=== PATIENT | female | born 1950 | race Caucasian/White ===

== ENCOUNTER → 2016-07-28 | Outpatient (CLI) | payer MEDICARE, OTHER ==
--- NOTE | 2016-07-29 11:17 | EEG ---
DATE OF SERVICE: 07/28/2016 INDICATIONS FOR EXAMINATION: Stroke. AGE: 66Y DESCRIPTION OF PROCEDURE: This EEG was performed using a 21 channel digital electroencephalograph following international 10-20 system. DESCRIPTION OF THE RECORDING: From the beginning of the tracing, with the patient's eyes closed, the background rhythm was mostly consisting of 8-9 Hz alpha frequency in the posterior occipital leads. Mild asymmetry is noticed with reduced amplitude in the left temporal/frontal region compared to the right side. Occasional movement artifacts are seen. Muscle artifacts are noticed. Photic stimulation was performed with minimal driving response seen. No pathological waves were elicited. Hyperventilation was not performed. The patient remains awake throughout the tracing. Significant movement artifacts are seen near the end of the tracing. No epileptiform discharges are seen. Her EKG lead showed regular rate and rhythm. INTERPRETATION: This awake EEG can be considered within normal limits except for mild asymmetry noticed as mentioned above. No epileptiform discharges were seen. The absence of epileptiform discharges does not rule out the diagnosis of epilepsy. Therefore, clinical correlation is recommended.
== END | disposition home or self-care (01) ==
LOC: NEUROMAIN 09:27
PROVIDERS: ATTEND Psychiatry & Neurology Neurology
DX: I61.9 Nontraumatic intracerebral hemorrhage, unspecified (principal)
CPT/HCPCS: 95819

== ENCOUNTER → 2016-11-11 | Outpatient (CLI) | payer MEDICARE, OTHER ==
--- NOTE | 2016-11-11 11:50 | US ---
EXAMINATION TYPE: US abdomen complete DATE OF EXAM: 11/11/2016 COMPARISON: NONE CLINICAL HISTORY: K75.9 Hepatitis,R94.5 Abn Liver Function Test. Abnormal liver function test, hepati tis EXAM MEASUREMENTS: Liver Length: 14.4 cm Gallbladder Wall: 0.2 cm CBD: 0.7 cm Spleen: 11.2 cm Right Kidney: 9.3 x 4.0 x 4.4 cm Left Kidney: 10.4 x 5.0 x 4.4 cm Pancreas: visualized portions wnl, tail obscured by overlying midline bowel gas, duct seen measuring 0.3cm Liver: slightly course echotexture, 2.7cm hypoechoic area adjacent to gallbladder, possible area of focal sparing vs. other Gallbladder: multiple echogenic shadowing foci seen with largest in fundal portion measuring 2.3cm, probable stones, wall appears wnl Evidence for sonographic Lerner's sign: no CBD: slightly dilated at 0.7cm Spleen: visualized portions wnl, limited by rib shadowing Right Kidney: no hydro or masses seen Left Kidney: no hydro or masses seen, limited by rib shadowing and overlying bowel gas Upper IVC: wnl Abd Aorta: visualized portions wnl, mid and distal portion obscured by overlying midline bowel gas The visualized liver is heterogeneous. Evaluation for focal masses is suboptimal due to the heterogen eity. No worrisome intrahepatic ductal dilatation is seen. The intrahepatic portion of the IVC and vi sualized proximal to mid abdominal aorta are within normal limits. There is evidence of mobile shado wing cholelithiasis. No pericholecystic fluid collection or abnormal gallbladder wall thickening is s een. Sonographic Lerner's sign is negative per technologist. Common bile duct is unremarkable. The visualized portions of the pancreas are homogenous. Duct is visualized but within normal limits The spleen is unremarkable. Kidneys are symmetric and free of hydronephrosis. No renal lesions are seen . IMPRESSION: 1. Gallstones without secondary ultrasound evidence for acute cholecystitis. 2. Heterogeneous hyperechoic appearance of liver is consistent with diffuse fatty infiltration or und erlying hepatocellular disease, former is favored given there is some sparing near gallbladder fossa.
== END | disposition home or self-care (01) ==
LOC: RADUSWWP 10:49
PROVIDERS: ATTEND Family Medicine
DX: K80.20 Calculus of gallbladder without cholecystitis without obstruction (principal); K75.89 Other specified inflammatory liver diseases
CPT/HCPCS: 76700

== ENCOUNTER 2016-12-15 10:36 | Emergency (ER) | payer MEDICARE, OTHER ==
[2016-12-15 10:43] VITALS: TEMP 97.9
[2016-12-15] MEDS ORDERED: HYDROmorphone 0.5 MG/0.5 ML SYRINGE IVP STA (10:51)
[2016-12-15] MEDS ORDERED: ONDANSETRON 4 MG/2 ML VIAL IVP STA (10:51)
--- NOTE | 2016-12-15 10:54 | ED ---
General Adult HPI - General Chief complaint: Abdominal Pain Stated complaint: SOB, Shaking Time Seen by Provider: 12/15/16 10:40 Source: patient, RN notes reviewed Mode of arrival: wheelchair Limitations: no limitations - History of Present Illness Initial comments: This is a 66-year-old female who presents emergency Department complaining of right upper quadrant abdominal pain radiates to her back. Patient states she recently had elevated liver enzymes. Patient states she also had an ultrasound and it showed gallstones. Patient states she's not a drinker. Patient denies any nausea vomiting. Patient states his pain started this morning and persisted today and she called her primary medical care doctor and she was instructed to come to the emergency department. Patient denies any recent fever or chills. Patient states she's had a chronic cough for about 2-3 weeks. Patient denies any sputum production. Patient denies shortness of breath except when she is coughing. Patient denies any chest pain or palpitations. - Related Data Home Medications Medication Instructions Recorded Confirmed Chlorpheniramine/Dextromethorp 1 tab PO Q6H PRN 12/15/16 12/15/16 [Coricidin Hbp Cough & Cold Tab] Hydrochlorothiazide [Hydrodiuril] 12.5 mg PO DAILY 12/15/16 12/15/16 Lisinopril [Zestril] 20 mg PO DAILY 12/15/16 12/15/16 amLODIPine [Norvasc] 10 mg PO DAILY 12/15/16 12/15/16 Allergies Allergy/AdvReac Type Severity Reaction Status Date / Time No Known Allergies Allergy Verified 12/15/16 10:54 Review of Systems ROS Statement: Those systems with pertinent positive or pertinent negative responses have been documented in the HPI. ROS Other: All systems not noted in ROS Statement are negative. 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 Patient is nontoxic and well- hydrated and is in mild distress. ENT: Neck is soft and supple. No significant lymphadenopathy is noted. Oropharynx is clear. Moist mucous membranes. Neck has full range of motion without eliciting any pain. EYES: The sclera were anicteric and conjunctiva were pink and moist. Extraocular movements were intact and pupils were equal round and reactive to light. Eyelids were unremarkable. PULMONARY: Unlabored respirations. Good breath sounds bilaterally. No audible rales rhonchi or wheezing was noted. CARDIOVASCULAR: There is a regular rate and rhythm without any murmurs gallops or rubs. ABDOMEN: Mild epigastric abdominal pain. No palpable organomegaly was noted. There is no palpable pulsatile mass. SKIN: Skin is clear with no lesions or rashes and otherwise unremarkable. NEUROLOGIC: Patient is alert and oriented x3. Cranial nerves II through XII are grossly intact. Motor and sensory are also intact. Normal speech, volume and content. Symmetrical smile. MUSCULOSKELETAL: Normal extremities with adequate strength and full range of motion. No lower extremity swelling or edema. No calf tenderness. LYMPHATICS: No significant lymphadenopathy is noted PSYCHIATRIC: Normal psychiatric evaluation. Limitations: no limitations Course Vital Signs 12/15/16 12/15/16 10:40 11:53 Temperature 97.9 F 97.9 F Pulse Rate 110 H 88 Respiratory 18 17 Rate Blood Pressure 133/66 114/66 O2 Sat by Pulse 100 99 Oximetry Medical Decision Making - Medical Decision Making X-ray of the chest shows no acute normalities. KUB shows no acute abnormality. I went back to the patient's room and she was feeling much better she stated she was able to see him drink lately without problem. Patient states currently she is not nauseous and the pain is much improved. Patient states she will follow-up with her primary medical care doctor and talked about getting a HIDA scan - Lab Data Result diagrams: 12/15/16 10:55 12/15/16 10:55 Lab Results 12/15/16 12/15/16 12/15/16 Range/Units 10:55 10:55 10:55 WBC 8.4 (3.8-10.6) k/uL RBC 4.03 (3.80-5.40) m/uL Hgb 12.6 (11.4-16.0) gm/dL Hct 38.1 (34.0-46.0) % MCV 94.5 (80.0-100.0) fL MCH 31.2 (25.0-35.0) pg MCHC 33.0 (31.0-37.0) g/dL RDW 12.3 (11.5-15.5) % Plt Count 398 (150-450) k/uL Neutrophils % 70 % Lymphocytes % 21 % Monocytes % 7 % Eosinophils % 2 % Basophils % 0 % Neutrophils # 5.8 (1.3-7.7) k/uL Lymphocytes # 1.7 (1.0-4.8) k/uL Monocytes # 0.6 (0-1.0) k/uL Eosinophils # 0.1 (0-0.7) k/uL Basophils # 0.0 (0-0.2) k/uL Sodium 136 L (137-145) mmol/L Potassium 4.0 (3.5-5.1) mmol/L Chloride 102 (98-107) mmol/L Carbon Dioxide 18 L (22-30) mmol/L Anion Gap 16 mmol/L BUN 26 H (7-17) mg/dL Creatinine 1.14 H (0.52-1.04) mg/dL Est GFR (MDRD) Af Amer 57 (>60 ml/min/1.73 sqM) Est GFR (MDRD) Non-Af 47 (>60 ml/min/1.73 sqM) Glucose 193 H (74-99) mg/dL Calcium 9.3 (8.4-10.2) mg/dL Total Bilirubin 0.7 (0.2-1.3) mg/dL AST 20 (14-36) U/L ALT 27 (9-52) U/L Alkaline Phosphatase 108 (38-126) U/L Total Protein 8.1 (6.3-8.2) g/dL Albumin 4.3 (3.5-5.0) g/dL Amylase 58 (30-110) U/L Lipase 241 (23-300) U/L Urine Color Light Yellow Urine Appearance Clear (Clear) Urine pH 7.5 (5.0-8.0) Ur Specific [place] 1.006 (1.001-1.035) Urine Protein Negative (Negative) Urine Glucose (UA) Negative (Negative) Urine Ketones Negative (Negative) Urine Blood Negative (Negative) Urine Nitrite Negative (Negative) Urine Bilirubin Negative (Negative) Urine Urobilinogen <2.0 (<2.0) mg/dL Ur Leukocyte Esterase Small H (Negative) Urine WBC 5 (0-5) /hpf Disposition Clinical Impression: Right upper quadrant pain Disposition: HOME SELF-CARE Condition: Good Instructions: Abdominal Pain (ED) Additional Instructions: Follow-up with her primary medical care doctor discussed the possibility of getting a HIDA scan Referrals: Ainsley Pabon MD [Primary Care Provider] - 1-2 days Time of Disposition: 12:13
[2016-12-15 11:10] LABS: Basophils % (A) 0 %; CH 33.2; CHCM 35.3; Eosinophils # (A) 0.1 k/uL (0-0.7); Eosinophils % (A) 2 %; HCT 38.1 % (34.0-46.0); HDW 2.43; HGB 12.6 gm/dL (11.4-16.0); Luc # (Auto) 0.11; Luc % (Auto) 1; Lymphocytes # (A) 1.7 k/uL (1.0-4.8); Lymphocytes % (A) 21 %; MCH 31.2 pg (25.0-35.0); MCV 94.5 fL (80.0-100.0); Mean Platelet Volume 8.3; Monocytes # (A) 0.6 k/uL (0-1.0); Monocytes % (A) 7 %; Neutrophils # (A) 5.8 k/uL (1.3-7.7); Neutrophils % (A) 70 %; RBC 4.03 m/uL (3.80-5.40); RDW 12.3 % (11.5-15.5); WBC 8.4 k/uL (3.8-10.6)
[2016-12-15 11:14] LABS: Calcium 9.3 mg/dL (8.4-10.2); Total Bilirubin 0.7 mg/dL (0.2-1.3); Total Protein 8.1 g/dL (6.3-8.2)
[2016-12-15 11:21] LABS: Appearance,Urine Clear (Clear); Bilirubin,Urine Negative (Negative); Glucose,Urine (UA) Negative (Negative); Ketones,Urine Negative (Negative); Leukocyte Esterase,Urine Small (Negative); Nitrite,Urine Negative (Negative); PH, Urine 7.5 (5.0-8.0); Particle Count 580; Protein,Urine Negative (Negative); Specific Gravity,Urine 1.006 (1.001-1.035); UA Billing (MACRO vs. MICRO) MICRO; Urobilinogen,Urine <2.0 mg/dL (<2.0); WBC,Urine 5 /hpf (0-5)
--- NOTE | 2016-12-15 11:45 | XR ---
EXAMINATION TYPE: XR KUB DATE OF EXAM: 12/15/2016 11:37 AM CLINICAL HISTORY: Right upper quadrant and flank pain. TECHNIQUE: Two Upright KUB images of the abdomen are obtained. COMPARISON: None. FINDINGS: Scattered gas is seen in non-distended small bowel loops. Gas and fecal material is seen in non-distended colon. There is left pelvic phlebolith. There is no visceromegaly, pneumoperitoneum, o r abnormal calcification appreciated. The lung bases are clear and the osseous structures are intact. IMPRESSION: Overall nonobstructive bowel gas pattern. No definite nephrolithiasis.
--- NOTE | 2016-12-15 11:45 | XR ---
EXAMINATION TYPE: XR chest 2V DATE OF EXAM: 12/15/2016 COMPARISON: Chest x-ray February 05, 2016. HISTORY: Right upper quadrant and flank pain. TECHNIQUE: Frontal and lateral views of the chest are obtained. FINDINGS: There is no focal air space opacity, pleural effusion, or pneumothorax seen. The cardiac silhouette size is within normal limits. The osseous structures are intact. IMPRESSION: No acute cardiopulmonary process. No significant change from prior.
[2016-12-15 11:54] VITALS: BP 114/66; PULSE 88; RESP 17
== END 2016-12-15 12:30 | disposition home or self-care (01) ==
LOC: EC 10:36
DX: R10.11 Right upper quadrant pain (principal); R05 Cough; Z86.73 Personal history of transient ischemic attack (TIA), and cerebral infarction without residual deficits; Z79.899 Other long term (current) drug therapy; Z53.20 Procedure and treatment not carried out because of patient's decision for unspecified reasons
CPT/HCPCS: 36415; 71020; 74000; 80053; 81001; 82150; 83690; 85025; 99284

== ENCOUNTER 2017-04-07 06:36 | Day surgery (SDC) | payer MEDICARE, OTHER ==
[2017-04-02 12:00] VITALS: BMI 28.1
[~2017-04-07 06:36] MED LIST: DEXAMETHASONE SOD PHOSPHATE 10 MG/ML 1 ML VIAL IV ONE; HEPARIN SODIUM,PORCINE 5,000 UNIT/ML 1 ML VIAL SQ ONE; HYDROmorphone 0.5 MG/0.5 ML SYRINGE IVP PRN; LACTATED RINGERS 1,000 ML IV SCH; ONDANSETRON 4 MG/2 ML VIAL IVP ONE; ceFAZolin IN SWFI 2 GM/20 ML SYRINGE IVP ONE
[2017-04-07] MEDS ORDERED: LIDOCAINE 1% 20 ML VIAL (10MG/ML) FOR IV START INTRADERMA ONE (06:49)
[2017-04-07] MEDS ORDERED: LACTATED RINGERS 1,000 ML IV ONE (07:00)
[2017-04-07 07:07] LABS: Glucose,Whole Blood 142 mg/dL (75-99)
--- NOTE | 2017-04-07 07:45 | P.GSHP ---
History of Present Illness H&P Date: 04/07/17 Chief Complaint: Chronic cholecystitis Patient seen in the office in January. She was in the ER with the complaints of right upper quadrant pain. She is found have large gallstones measuring 2.3 cm. Recently her right-sided pain has persisted. Aggravated by certain foods. No change in bowel habits. No change in the color of her skin urine or stool. Recent liver enzymes normal. 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"/ TIA 2015; gallstones History of Any Multi-Drug Resistant Organisms: None Reported Past Surgical History: Adenoidectomy, Tonsillectomy Additional Past Surgical History / Comment(s): as child Past Anesthesia/Blood Transfusion Reactions: No Reported Reaction Smoking Status: Never smoker - Past Family History Sister(s) Family Medical History: Cancer Medications and Allergies Home Medications Medication Instructions Recorded Confirmed Type Hydrochlorothiazide [Hydrodiuril] 12.5 mg PO DAILY 12/15/16 04/02/17 History Lisinopril [Zestril] 20 mg PO DAILY 12/15/16 04/02/17 History amLODIPine [Norvasc] 10 mg PO DAILY 12/15/16 04/02/17 History Allergies Allergy/AdvReac Type Severity Reaction Status Date / Time No Known Allergies Allergy Verified 04/02/17 11:55 Surgical - Exam Vital Signs Temp Pulse Resp BP Pulse Ox 98.3 F 101 H 18 139/84 99 04/07/17 06:47 04/07/17 06:47 04/07/17 06:47 04/07/17 06:47 04/07/17 06:47 Physical exam: General: Well-developed, well-nourished HEENT: Normocephalic, sclerae nonicteric Abdomen: Nontender, nondistended Extremities: No edema Neuro: Alert and oriented Results - Labs Abnormal Lab Results - Last 24 Hours (Table) 04/07/17 Range/Units 07:02 POC Glucose (mg/dL) 142 H (75-99) mg/dL Assessment and Plan (1) Chronic cholecystitis Narrative/Plan: Will proceed with laparoscopic cholecystectomy today. Risks of bleeding, infection, bile leak, bile duct injury, conversion to an open procedure, trocar injury, anesthesia related complications were discussed. She understands and wishes to proceed. Current Visit: Yes Status: Acute Code(s): K81.1 - CHRONIC CHOLECYSTITIS SNOMED Code(s): 99965988
[2017-04-07] MEDS ORDERED: SUCCINYLCHOLINE CHLORIDE 100 MG/5 ML SYR IV ONE (08:05)
[2017-04-07] MEDS ORDERED: GLYCOPYRROLATE 0.2 MG/ML 2 ML VIAL ONE (08:05)
[2017-04-07] MEDS ORDERED: PHENYLEPHRINE-0.9% NACL SYG 1 MG/10 ML SYRINGE ONE (08:05)
[2017-04-07] MEDS ORDERED: NEOSTIGMINE 1 MG/ML 10 ML VIAL ONE (08:05)
[2017-04-07] MEDS ORDERED: LIDOCAINE 1% INJ 10MG/ML (20 ML MDV) ONE (08:05)
[2017-04-07] MEDS ORDERED: HYDROmorphone (PF) 1 MG/ML ONE (08:05)
[2017-04-07] MEDS ORDERED: ROCURONIUM BROMIDE 10 MG/ML 10 ML VIAL IV ONE (08:05)
[2017-04-07] MEDS ORDERED: PROPOFOL 10 MG/ML 20 ML VIAL IV ONE (08:05)
[2017-04-07] MEDS ORDERED: fentaNYL (PF) 50 MCG/ML 2 ML AMP ONE (08:05)
[2017-04-07] MEDS ORDERED: MIDAZOLAM 2 MG/2 ML VIAL ONE (08:05)
[2017-04-07] MEDS ORDERED: BUPIVACAINE (PF) 0.5% 30 ML VIAL SQ ONE ×2 (08:25)
[2017-04-07] MEDS ORDERED: NALOXONE 0.4 MG/ML 1 ML VIAL IV PRN (09:04)
[2017-04-07] MEDS ORDERED: traMADol 50 MG TAB PO PRN (09:04)
--- NOTE | 2017-04-07 09:11 | P.PCN ---
Date of Procedure: 04/07/17 Procedure(s) Performed: Preoperative Dx: GERD Postoperative Dx: Mild gastritis, small hiatal hernia Procedure: EGD with Bx Anesthesia: Sedation Endoscopist: Dr. Brown Specimens: Antrum Endoscopic Procedure: The patient was on the endoscopy table in the left decubitus position. The Olympus gastroscope was inserted into the oropharynx and passed under direct visualization to the region of the third portion of the duodenum. From that point the scope was slowly withdrawn inspecting all surfaces carefully. There were no neoplastic inflammatory or polypoid lesions throughout the duodenum. The pylorus was widely patent. The stomach was carefully inspected. There was mild gastritis present. A biopsy of the antrum took place to rule out H. pylori. Retroflexion revealed a small to medium sized hiatal hernia. The esophagus was then carefully examined. There were no neoplastic inflammatory or polypoid lesions throughout the visualized esophagus. The patient was then taken to the recovery room in stable condition per anesthesia guidelines. Recommendations: Await biopsies results. Will see the patient back in the office to discuss antireflux surgery.
--- NOTE | 2017-04-07 09:15 | P.OP ---
Date of Procedure: 04/07/17 Procedure(s) Performed: PREOPERATIVE DIAGNOSIS: Chronic cholecystitis POSTOPERATIVE DIAGNOSIS: Same PROCEDURE: Laparoscopic cholecystectomy SURGEON: Stephanie EBL: Minimal see anesthesia record ANESTHESIA: Gen. COMPLICATIONS: None OPERATIVE PROCEDURE: The patient was brought and placed on the operating room table in the supine position. The patient was placed under general anesthesia at that time. The abdomen was prepped and draped in the usual sterile fashion. A small vertical infraumbilical incision was made. The fascia was grasped with the Sharif forceps. The fascia was retracted anteriorly. The Veress needle was advanced into the peritoneal cavity. The saline drop test was normal. Insufflation took place up to 15 mmHg. A 5 mm optical trocar was advanced and the peritoneal cavity. 2 additional 5 mm trochars were placed in the right upper quadrant under direct visualization. A 10 mm trocar was advanced into the epigastric incision site. The gallbladder was retracted superiorly and laterally. The peritoneum overlying the infundibulum was bluntly dissected. The patient's cystic duct was visualized. The junction between the cystic duct common and hepatic duct was identified. The cystic duct was then divided after placement of 3 10 mm clips on the patient's side and one on the specimen side. The cystic artery was identified and clipped as well. A small vessel was seen along the gallbladder fossa and clipped as well. The gallbladder was then removed from the liver bed using electrocautery. The gallbladder was then removed from the epigastric trocar site with an Endo Catch bag after lengthening the epigastric incision. The gallbladder fossa was irrigated with saline. There was no evidence of any bleeding or biliary drainage seen. The trochars were then removed. The fascia at the 10 millimeter site was closed using a running 0 Vicryl stitch. The skin at all 4 sites was closed using a 4-0 Monocryl stitch. At the end of this procedure the sponge and needle counts were correct. DISPOSITION: Stable to the recovery room. Incidentally the patient was noted to have a friable lesion involving her right upper gumline during intubation. This has the appearance suspicious for malignancy. Family was informed of this. We will try to have the patient seen by oral surgery to address this further in the outpatient setting.
[2017-04-07 09:23] VITALS: TEMP 98.8
[2017-04-07 10:56] VITALS: BP 116/58; PULSE 81; RESP 18
== END 2017-04-07 12:30 | disposition home or self-care (01) ==
LOC: OR 06:36
PROVIDERS: ATTEND Surgery
DX: K80.10 Calculus of gallbladder with chronic cholecystitis without obstruction (principal); M19.90 Unspecified osteoarthritis, unspecified site; I10 Essential (primary) hypertension; E11.9 Type 2 diabetes mellitus without complications; N28.9 Disorder of kidney and ureter, unspecified; I69.351 Hemiplegia and hemiparesis following cerebral infarction affecting right dominant side; Z79.899 Other long term (current) drug therapy
CPT/HCPCS: 88304; 47562; J2250; J1644; J1100; J2710; J2405; J2001; J3010; J1170; J2370; J0330; J2704; J0690

== ENCOUNTER → 2017-05-25 | Outpatient (CLI) | payer MEDICARE, OTHER ==
[2017-05-25 09:58] LABS: Basophils % (A) 1 %; Eosinophils # (A) 0.1 k/uL (0-0.7); Eosinophils % (A) 3 %; HCT 42.1 % (34.0-46.0); HGB 13.8 gm/dL (11.4-16.0); Lymphocytes # (A) 1.6 k/uL (1.0-4.8); Lymphocytes % (A) 32 %; MCH 29.5 pg (25.0-35.0); MCHC 32.8 g/dL (31.0-37.0); Mean Platelet Volume 7.1; Monocytes # (A) 0.3 k/uL (0-1.0); Monocytes % (A) 6 %; Neutrophils # (A) 2.8 k/uL (1.3-7.7); Neutrophils % (A) 56 %; Platelet Count 247 k/uL (150-450); RBC 4.68 m/uL (3.80-5.40); RDW 12.6 % (11.5-15.5)
[2017-05-25 10:04] LABS: Albumin 4.5 g/dL (3.5-5.0); Calcium 9.8 mg/dL (8.4-10.2); Phosphorus 3.7 mg/dL (2.5-4.5); Potassium 5.3 mmol/L (3.5-5.1); Total Bilirubin 0.5 mg/dL (0.2-1.3); Total Protein 7.7 g/dL (6.3-8.2); Uric Acid 5.2 mg/dL (3.7-7.4)
[2017-05-25 16:18] LABS: Vitamin D 25 Hydroxy 27.3 ng/mL (30.0-100.0)
[2017-05-25 16:34] LABS: Parathyroid Hormone Intact 51.4 pg/mL (14.0-72.0)
== END | disposition home or self-care (01) ==
LOC: LABWHC1 09:18
PROVIDERS: ATTEND Family Medicine
DX: N18.3 Chronic kidney disease, stage 3 (moderate) (principal); E78.5 Hyperlipidemia, unspecified; R74.8 Abnormal levels of other serum enzymes
CPT/HCPCS: 36415; 80053; 80061; 82043; 82306; 82570; 82977; 83735; 83970; 84100; 84550; 85025

== ENCOUNTER → 2017-09-01 | Outpatient (CLI) | payer MEDICARE, OTHER ==
[2017-09-01 10:17] LABS: Albumin 4.6 g/dL (3.5-5.0); Calcium 9.6 mg/dL (8.4-10.2); Potassium 4.5 mmol/L (3.5-5.1); Total Bilirubin 0.5 mg/dL (0.2-1.3); Total Protein 7.6 g/dL (6.3-8.2)
[2017-09-01 17:12] LABS: Hemoglobin A1C 6.2 % (4.0-6.0)
== END | disposition home or self-care (01) ==
LOC: LABWHC1 09:25
PROVIDERS: ATTEND Family Medicine
DX: E11.22 Type 2 diabetes mellitus with diabetic chronic kidney disease (principal); N18.3 Chronic kidney disease, stage 3 (moderate); E55.9 Vitamin D deficiency, unspecified; E78.5 Hyperlipidemia, unspecified; R74.8 Abnormal levels of other serum enzymes
CPT/HCPCS: 36415; 80053; 80061; 82306; 82977; 83036

== ENCOUNTER → 2017-11-26 | Outpatient (CLI) | payer MEDICARE, OTHER ==
[2017-11-26 12:06] LABS: Basophils % (A) 1 %; Eosinophils # (A) 0.2 k/uL (0-0.7); Eosinophils % (A) 3 %; HCT 38.9 % (34.0-46.0); HGB 13.1 gm/dL (11.4-16.0); Lymphocytes # (A) 1.4 k/uL (1.0-4.8); Lymphocytes % (A) 25 %; MCH 30.8 pg (25.0-35.0); MCHC 33.8 g/dL (31.0-37.0); Mean Platelet Volume 7.1; Monocytes # (A) 0.4 k/uL (0-1.0); Monocytes % (A) 7 %; Neutrophils # (A) 3.4 k/uL (1.3-7.7); Neutrophils % (A) 63 %; Platelet Count 210 k/uL (150-450); RBC 4.27 m/uL (3.80-5.40); RDW 12.8 % (11.5-15.5); WBC 5.4 k/uL (3.8-10.6)
[2017-11-26 12:27] LABS: Calcium 9.8 mg/dL (8.4-10.2)
--- NOTE | 2017-11-26 14:35 | MM ---
Reason for exam: screening (asymptomatic). Baseline mammogram. History: Patient is postmenopausal. Physical Findings: Nurse did not find any significant physical abnormalities on exam. MG Screening Mammo w CAD Bilateral CC and MLO view(s) were taken. There are scattered fibroglandular densities. Finding #1: There is a 5 mm equal density (isodense) mass in the subareolar position of the left breast. Finding #2: There are typically benign calcifications in both breasts. These results were verbally communicated with the patient and result sheet given to the patient on 11/26/17. ASSESSMENT: Incomplete: need additional imaging evaluation, BI-RAD 0 RECOMMENDATION: Special view mammogram of the left breast. If lesion persists on supplemental views, image directed ultrasound is recommended. [facility] will attempt to contact patient to return for supplemental views and ultrasound if indicated.
--- NOTE | 2017-11-26 14:36 | MM ---
Reason for exam: additional evaluation requested from abnormal screening. History: Patient is postmenopausal. Physical Findings: Breast exam preformed at baseline screening. MG Work Up Mamm w CAD LT Spot compression CC, spot compression MLO, and ML view(s) were taken of the left breast. There are scattered fibroglandular densities. These results were verbally communicated with the patient and result sheet given to the patient on 11/26/17. ASSESSMENT: Benign, BI-RAD 2 RECOMMENDATION: Return to routine screening mammogram schedule for both breasts.
== END | disposition home or self-care (01) ==
LOC: RADMAMWWP 10:08
PROVIDERS: ATTEND Family Medicine
DX: Z12.31 Encounter for screening mammogram for malignant neoplasm of breast (principal); R92.8 Other abnormal and inconclusive findings on diagnostic imaging of breast; N18.3 Chronic kidney disease, stage 3 (moderate)
CPT/HCPCS: 77065; 77067; 80048; 83970; 84100; 85025

== ENCOUNTER → 2018-03-08 | Outpatient (CLI) | payer MEDICARE, OTHER ==
[2018-03-08 11:51] LABS: Basophils % (A) 1 %; Eosinophils # (A) 0.2 k/uL (0-0.7); Eosinophils % (A) 2 %; HCT 38.6 % (34.0-46.0); HGB 12.8 gm/dL (11.4-16.0); Lymphocytes # (A) 1.6 k/uL (1.0-4.8); Lymphocytes % (A) 22 %; MCH 30.5 pg (25.0-35.0); MCHC 33.2 g/dL (31.0-37.0); Mean Platelet Volume 7.2; Monocytes # (A) 0.4 k/uL (0-1.0); Monocytes % (A) 6 %; Neutrophils # (A) 4.9 k/uL (1.3-7.7); Neutrophils % (A) 68 %; Platelet Count 249 k/uL (150-450); RBC 4.19 m/uL (3.80-5.40); RDW 12.7 % (11.5-15.5); WBC 7.3 k/uL (3.8-10.6)
[2018-03-08 17:33] LABS: Hemoglobin A1C 6.9 % (4.0-6.0)
[2018-03-08 19:11] LABS: Albumin 4.6 g/dL (3.80-4.90); Albumin/Globulin Ratio 1.92 (1.20-2.10); Anion Gap 7.5 mmol/L (4.00-12.00); Calcium 9.4 mg/dL (8.7-10.3); Carbon Dioxide 27.5 mmol/L (21.6-31.8); Globulin 2.4 g/dL (1.6-3.3); LDL Cholesterol,Calculated 53.4 mg/dL (0.0-131.0); Phosphorus 3.3 mg/dL (2.4-5.1); Potassium 5.3 mmol/L (3.5-5.5); Total Bilirubin 0.6 mg/dL (0.3-1.2); VLDL Calculation 12.6 mg/dL (5.00-40.00)
== END | disposition home or self-care (01) ==
LOC: LABWHC1 10:40
PROVIDERS: ATTEND Family Medicine
DX: E78.5 Hyperlipidemia, unspecified (principal); N18.2 Chronic kidney disease, stage 2 (mild); E55.9 Vitamin D deficiency, unspecified; E11.22 Type 2 diabetes mellitus with diabetic chronic kidney disease
CPT/HCPCS: 36415; 80053; 80061; 82043; 82306; 82570; 83036; 83735; 84100; 85025

== ENCOUNTER → 2018-06-07 | Outpatient (CLI) | payer MEDICARE, OTHER ==
[2018-06-07 16:11] LABS: Anion Gap 8.4 mmol/L (4.00-12.00); Calcium 9.6 mg/dL (8.7-10.3); Carbon Dioxide 24.6 mmol/L (21.6-31.8); Magnesium 2.2 mg/dL (1.5-2.4); Phosphorus 3.9 mg/dL (2.4-5.1); Potassium 4.8 mmol/L (3.5-5.5)
[2018-06-07 17:29] LABS: Hemoglobin A1C 6.5 % (4.0-6.0)
== END | disposition home or self-care (01) ==
LOC: LABWHC1 10:57
PROVIDERS: ATTEND Family Medicine
DX: E11.22 Type 2 diabetes mellitus with diabetic chronic kidney disease (principal); N18.3 Chronic kidney disease, stage 3 (moderate)
CPT/HCPCS: 36415; 80048; 83036; 83735; 83970; 84100

== ENCOUNTER → 2018-09-09 | Outpatient (CLI) | payer MEDICARE, OTHER ==
[2018-09-09 18:19] LABS: Albumin 4.6 g/dL (3.80-4.90); Albumin/Globulin Ratio 1.77 (1.60-3.17); Anion Gap 8.1 mmol/L (4.00-12.00); BUN/Creat Ratio 25.83 Ratio (12.00-20.00); Calcium 9.3 mg/dL (8.7-10.3); Carbon Dioxide 24.9 mmol/L (21.6-31.8); Globulin 2.6 g/dL (1.6-3.3); LDL Cholesterol,Calculated 69.8 mg/dL (0.0-131.0); Potassium 4.6 mmol/L (3.5-5.5); Total Bilirubin 0.6 mg/dL (0.3-1.2); Total Protein 7.2 g/dL (6.2-8.2); VLDL Calculation 14.2 mg/dL (5.00-40.00)
[2018-09-09 19:45] LABS: Hemoglobin A1C 6.2 % (4.0-6.0)
== END ==
LOC: LABWHC1 09:26
PROVIDERS: ATTEND Family Medicine
DX: E78.5 Hyperlipidemia, unspecified (principal); E11.9 Type 2 diabetes mellitus without complications
CPT/HCPCS: 36415; 80053; 80061; 83036

== ENCOUNTER → 2018-12-07 | Outpatient (CLI) | payer MEDICARE, OTHER ==
[2018-12-07 18:37] LABS: African American GFR (CKD) 58.9 (60.0-200.0); Albumin 4.9 g/dL (3.80-4.90); Albumin/Globulin Ratio 1.81 (1.60-3.17); Anion Gap 9.6 mmol/L (4.00-12.00); BUN/Creat Ratio 25.45 Ratio (12.00-20.00); Calcium 9.6 mg/dL (8.7-10.3); Carbon Dioxide 22.4 mmol/L (21.6-31.8); Chol/HDL Ratio 2.43; Globulin 2.7 g/dL (1.6-3.3); LDL Cholesterol,Calculated 72.4 mg/dL (0.0-131.0); Potassium 5.1 mmol/L (3.5-5.5); Total Bilirubin 0.6 mg/dL (0.3-1.2); Total Protein 7.6 g/dL (6.2-8.2); VLDL Calculation 17.6 mg/dL (5.00-40.00)
== END | disposition home or self-care (01) ==
LOC: LABWHC1 10:56
PROVIDERS: ATTEND Family Medicine
DX: E78.5 Hyperlipidemia, unspecified (principal); N18.3 Chronic kidney disease, stage 3 (moderate)
CPT/HCPCS: 36415; 80053; 80061

== ENCOUNTER 2019-02-16 10:58 | Emergency (ER) | payer MEDICARE, OTHER ==
[2019-02-16 11:33] VITALS: BP 157/85; PULSE 111; RESP 19; TEMP 98.7
--- NOTE | 2019-02-16 12:36 | ED ---
Eye Problem HPI - General Chief complaint: Eye Problems Stated complaint: Eye Blurriness/Poss pink eye Time Seen by Provider: 02/16/19 12:21 Source: patient Mode of arrival: ambulatory Limitations: no limitations - History of Present Illness Initial comments: Patient is a 69-year-old female presenting to the emergency Department with complaints of right eye irritation 2 days. Patient states she has been having mild redness and irritated feeling of the right eye as well as clear to yellow drainage. Patient states she woke up this morning with her right eye crusted shut with yellow crusting. Patient does admit to history of cataract in the right eye as well as partial blindness of the left eye. Patient denies headache, trauma, any other injuries. Patient has no other complaints at this time. Upon arrival to the ER, her vital signs are stable. - Related Data Home Medications Medication Instructions Recorded Confirmed Hydrochlorothiazide [Hydrodiuril] 12.5 mg PO DAILY 12/15/16 04/02/17 Lisinopril [Zestril] 20 mg PO DAILY 12/15/16 04/02/17 amLODIPine [Norvasc] 10 mg PO DAILY 12/15/16 04/02/17 Previous Rx's Medication Instructions Recorded traMADol HCl [Ultram] 50 mg PO Q6H PRN #20 tab 04/07/17 Polymyxin B-Trimeth Sulf Ophth 1 drops RIGHT EYE Q4H 5 Days #1 02/16/19 [Polytrim Opthalmic] bottle Allergies Allergy/AdvReac Type Severity Reaction Status Date / Time No Known Allergies Allergy Verified 04/02/17 11:55 Review of Systems ROS Statement: Those systems with pertinent positive or pertinent negative responses have been documented in the HPI. ROS Other: All systems not noted in ROS Statement are negative. 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"/ TIA 2016; gallstones History of Any Multi-Drug Resistant Organisms: None Reported Past Surgical History: Adenoidectomy, Tonsillectomy Additional Past Surgical History / Comment(s): as child Past Anesthesia/Blood Transfusion Reactions: No Reported Reaction Past Psychological History: No Psychological Hx Reported Smoking Status: Never smoker Past Alcohol Use History: None Reported Past Drug Use History: None Reported - Past Family History Sister(s) Family Medical History: Cancer General Exam - General Exam Comments Initial Comments: GENERAL: Well-appearing, well-nourished and in no acute distress. HEAD: Atraumatic, normocephalic. EYES: Pupils equal round and reactive to light, extraocular movements intact, sclera anicteric. Right eye mild injected conjunctivae, clear to yellow drainage present. No foreign body visible. No pain to palpation around the eye. Visual acuity is at baseline. ENT: TMs normal, nares patent, oropharynx clear without exudates. Moist mucous membranes. NECK: Normal range of motion, supple without lymphadenopathy or JVD. LUNGS: Breath sounds clear to auscultation bilaterally and equal. No wheezes rales or rhonchi. HEART: Regular rate and rhythm without murmurs, rubs or gallops. EXTREMITIES: Normal range of motion, no pitting or edema. No clubbing or cyanosis. NEUROLOGICAL: Cranial nerves II through XII grossly intact. Normal speech, normal gait. PSYCH: Normal mood, normal affect. SKIN: Warm, Dry, normal turgor, no rashes or lesions noted. Limitations: no limitations Course Vital Signs 02/16/19 11:31 Temperature 98.7 F Pulse Rate 111 H Respiratory 19 Rate Blood Pressure 157/85 O2 Sat by Pulse 98 Oximetry Medical Decision Making - Medical Decision Making Patient is a 69-year-old female presenting with right eye irritation and redness 2 days. Exam is consistent with right eye conjunctivitis. Visual acuity is at baseline. Rest of vitals are normal. Patient will be started on Polytrim eyedrops. Patient will follow-up with ophthalmology if symptoms persist. Patient is stable for discharge and she is in agreement with this plan of care. Return parameters were discussed with the patient she verbalized understanding. Case discussed with Dr. Chiang. Disposition Clinical Impression: Bacterial conjunctivitis of right eye Disposition: HOME SELF-CARE Condition: Stable Instructions (If sedation given, give patient instructions): Conjunctivitis (ED) Additional Instructions: Please return to the Emergency Department if symptoms worsen or any other concerns. Use antibiotic eyedrops as prescribed. Follow up with ophthalmology if symptoms persist. Prescriptions: Polymyxin B-Trimeth Sulf Ophth [Polytrim Opthalmic] 1 drops RIGHT EYE Q4H 5 Days #1 bottle Is patient prescribed a controlled substance at d/c from ED?: No Referrals: Fam,Nasir [Primary Care Provider] - 1-2 days
== END 2019-02-16 12:42 | disposition home or self-care (01) ==
LOC: EC 10:58
DX: H10.89 Other conjunctivitis (principal); B96.89 Other specified bacterial agents as the cause of diseases classified elsewhere; H54.62 Unqualified visual loss, left eye, normal vision right eye; Z79.899 Other long term (current) drug therapy
CPT/HCPCS: 99283

== ENCOUNTER → 2019-09-13 | Outpatient (CLI) | payer MEDICARE, OTHER ==
--- NOTE | 2019-09-13 14:05 | BD ---
EXAMINATION TYPE: Axial Bone Density DATE OF EXAM: 09/13/2019 COMPARISON: NONE CLINICAL HISTORY: 69 YR OLD FEMALE.....ICD-10 CODE: Z78.0 ASYMPTOMATIC MENOPAUSAL STATE Height: 62.5 Weight: 170 FRAX RISK QUESTIONS: NOTHING ADDITIONAL TO NOTE HERE RISK FACTORS HISTORY OF: Postmenopausal woman: YES, AT AGE 50 Lost more than 2 inches in height since high school: YES Frequent falls: UNSTEADY, STROKE Hyperparathyroidism: NO Adrenal Insufficiency: NO MEDICATIONS: Additional Medications: BP MEDS, DIET CONTROLLED DIABETES, STATIN FOR CHOLESTEROL, Additional History: HX OF STROKE, 2016, NERVE DMG TO RT SIDE, HYPERTENSION, DIABETIC, STATIN FOR CHOL ESTEROL EXAM MEASUREMENTS: Bone mineral densitometry was performed using the Achieve X System. Bone mineral density as measured about the Lumbar spine is: ----- L1-L4(G/cm2): 1.418 T Score Values are as follows: ----- L1: 2.2 ----- L2: 1.6 ----- L3: 2.2 ----- L4: 1.8 ----- L1-L4: 2.0 Bone mineral density FIRST BONE DENSITY SCAN.......BASELINE STUDY Bone mineral density about the R hip (g/cm2): 0.925 Bone mineral density about the L hip (g/cm2): 0.886 T Score values are as follows: -----R Neck: -0.3 -----L Neck: -0.7 -----R Total: -0.7 -----L Total: -1.0 Bone mineral density BASELINE STUDY FRAX%s: THERE IS A 8.2% CHANCE FOR A MAJOR OSTEOPOROTIC FX AND A 0.8% FOR HIP......PROBABILITY FOR FX IN 10 YRS TIME IMPRESSION: Normal (Values between +1 and -1 indicate normal bone mass). Consider repeating this study in 5 year s or sooner if there is some new clinical indication. NOTE: T-SCORE=SD OF THE YOUNG ADULT MEAN.
--- NOTE | 2019-09-14 07:34 | MM ---
Reason for exam: screening (asymptomatic). Last mammogram was performed 1 year and 10 months ago. History: Patient is postmenopausal. Physical Findings: A clinical breast exam by your physician is recommended on an annual basis and results should be correlated with mammographic findings. MG 3D Screening Mammo W/Cad Bilateral CC and MLO view(s) were taken. Prior study comparison: November 26, 2017, left breast MG work up mamm w CAD LT. November 26, 2017, bilateral MG screening mammo w CAD. The breast tissue is heterogeneously dense. This may lower the sensitivity of mammography. Finding: There are typically benign round, diffuse/scattered and grouped calcifications in both breasts. There is no discrete abnormality. ASSESSMENT: Benign, BI-RAD 2 RECOMMENDATION: Routine screening mammogram of both breasts in 1 year.
== END | disposition home or self-care (01) ==
LOC: RADMAMWWP 09:42
PROVIDERS: ATTEND Family Medicine
DX: Z78.0 Asymptomatic menopausal state (principal); Z12.31 Encounter for screening mammogram for malignant neoplasm of breast
CPT/HCPCS: 77063; 77067; 77080

== ENCOUNTER 2020-05-07 07:35 | Day surgery (SDC) | payer MEDICARE, OTHER ==
[2020-05-03 09:51] VITALS: BMI 30.2
[~2020-05-07 07:35] MED LIST changes: -DEXAMETHASONE SOD PHOSPHATE 10 MG/ML 1 ML VIAL IV ONE; -HEPARIN SODIUM,PORCINE 5,000 UNIT/ML 1 ML VIAL SQ ONE; -HYDROmorphone 0.5 MG/0.5 ML SYRINGE IVP PRN; +LIDOCAINE 1% (10MG/ML) FOR IV START INTRADERMA PRN; -ONDANSETRON 4 MG/2 ML VIAL IVP ONE; -ceFAZolin IN SWFI 2 GM/20 ML SYRINGE IVP ONE
[2020-05-07 08:02] VITALS: TEMP 98
[2020-05-07 08:04] LABS: Glucose,Whole Blood 184 mg/dL (75-99)
[2020-05-07] MEDS ORDERED: PROPOFOL 10 MG/ML 20 ML VIAL IV ONE (08:29)
--- NOTE | 2020-05-07 08:33 | P.GSHP ---
History of Present Illness H&P Date: 05/07/20 Chief Complaint: Positive fit test Patient here today after having a positive fit test. Patient sees no blood in her stool grossly. No abdominal pain. Family history of polyps. No family history of colon cancer. No change in bowel habits. 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 History of Any Multi-Drug Resistant Organisms: None Reported Past Surgical History: Adenoidectomy, Cholecystectomy, Tonsillectomy Additional Past Surgical History / Comment(s): as child Past Anesthesia/Blood Transfusion Reactions: No Reported Reaction, Family History of Problems w/ Anesthesia Additional Past Anesthesia/Blood Transfusion Reaction / Comment(s): sister ponc Past Psychological History: No Psychological Hx Reported Additional Psychological History / Comment(s): CARES FOR DISABLED BROTHER Smoking Status: Never smoker Past Alcohol Use History: None Reported Past Drug Use History: None Reported - Past Family History Sister(s) Family Medical History: Cancer Medications and Allergies Home Medications Medication Instructions Recorded Confirmed Type amLODIPine [Norvasc] 10 mg PO DAILY 12/15/16 05/03/20 History Acetaminophen [Tylenol] 325 mg PO DIRECTED PRN 05/03/20 05/07/20 History Atorvastatin [Lipitor] 10 mg PO HS 05/03/20 05/07/20 History lisinopriL 30 mg PO DAILY 05/03/20 05/03/20 History Allergies Allergy/AdvReac Type Severity Reaction Status Date / Time No Known Allergies Allergy Verified 05/07/20 07:47 Surgical - Exam Vital Signs Temp Pulse Resp BP Pulse Ox 98.0 F 105 H 17 133/58 98 05/07/20 08:00 05/07/20 08:00 05/07/20 08:00 05/07/20 08:00 05/07/20 08:00 Physical exam: General: Well-developed, well-nourished HEENT: Normocephalic, sclerae nonicteric Abdomen: Nontender, nondistended Extremities: No edema Neuro: Alert and oriented Results - Labs Abnormal Lab Results - Last 24 Hours (Table) 05/07/20 Range/Units 07:59 POC Glucose (mg/dL) 184 H (75-99) mg/dL Assessment and Plan (1) Positive FIT (fecal immunochemical test) Narrative/Plan: Proceed with colonoscopy Current Visit: Yes Status: Acute Code(s): R19.5 - OTHER FECAL ABNORMALITIES SNOMED Code(s): 76052379
--- NOTE | 2020-05-07 08:49 | P.PCN ---
Date of Procedure: 05/07/20 Procedure(s) Performed: PREOPERATIVE DIAGNOSIS: Positive fit test POSTOPERATIVE DIAGNOSIS: Ascending colon polyp, transverse colon polyp, sigmoid colon polyp 2, diverticulosis PROCEDURE: Colonoscopy with snare polypectomy ANESTHESIA: MAC SURGEON: Virgilio Brown M.D. SPECIMENS: Polyps ENDOSCOPIC PROCEDURE: The patient was placed on the endoscopy table in the left decubitus position. The Olympus colonoscope was inserted into the anus and passed under direct visualization to the base of the cecum. The appendiceal orifice was visualized. From that point the scope was slowly withdrawn inspecting all surfaces carefully. There were no neoplastic inflammatory or polypoid lesions throughout the cecum. In the ascending colon a small polyp was seen and removed using the snare with cautery technique. This was not retrieved with certainty. We then identified a transverse colon polyp that was removed using the snare with cautery technique. That specimen was sent labeled ascending and transverse. The descending colon appeared normal. In the sigmoid colon there were 2 polyps both removed using the snare with cautery technique. The rectum appeared normal. There was scattered diverticulosis. Digital rectal examination was normal. The patient was taken to the recovery room in stable condition per anesthesia guidelines. RECOMMENDATIONS: Await biopsy results.
[2020-05-07 08:56] VITALS: RESP 16
[2020-05-07 09:09] VITALS: BP 147/79; PULSE 81
== END 2020-05-07 09:34 | disposition home or self-care (01) ==
LOC: ORWHC2ENDO 07:35
PROVIDERS: ATTEND Surgery
DX: K63.5 Polyp of colon (principal); Z83.71 Family history of colonic polyps; M19.90 Unspecified osteoarthritis, unspecified site; Z80.9 Family history of malignant neoplasm, unspecified; Z79.899 Other long term (current) drug therapy; I69.351 Hemiplegia and hemiparesis following cerebral infarction affecting right dominant side; E11.22 Type 2 diabetes mellitus with diabetic chronic kidney disease; N18.30 Chronic kidney disease, stage 3 unspecified; Z98.890 Other specified postprocedural states
CPT/HCPCS: 88305; 45385; J2704

== ENCOUNTER → 2021-06-30 | Outpatient (CLI) | payer MEDICARE, OTHER ==
[2021-06-30 18:45] LABS: Protein, Total 8.8 g/dL (6.2-8.2)
== END | disposition home or self-care (01) ==
LOC: LABWHC1 10:58
PROVIDERS: ATTEND Family Medicine
DX: R77.1 Abnormality of globulin (principal)
CPT/HCPCS: 36415; 84165

== ENCOUNTER → 2021-07-25 | Outpatient (CLI) | payer MEDICARE, OTHER ==
--- NOTE | 2021-07-29 07:51 | MM ---
Reason for Exam: Screening (asymptomatic). Last mammogram was performed 1 year(s) and 11 month(s) ago. Patient History: Menarche at age 11. First Full-Term at age 21. Postmenopausal. Risk Values: Brandy 5 year model risk: 1.6%. NCI Lifetime model risk: 3.9%. Prior Study Comparison: 11/26/2017 Bilateral Screening Mammogram, [facility]. 11/26/2017 Left Diagnostic Mammogram, [facility]. 09/13/2019 Bilateral Screening Mammogram, [facility]. Tissue Density: The breast tissue is heterogeneously dense. This may lower the sensitivity of mammography. Findings: Analyzed By CAD. There is no suspicious group of microcalcifications or new suspicious mass in either breast. Benign appearing calcifications. No architectural distortion. Overall Assessment: Benign, BI-RAD 2 Management: Screening Mammogram of both breasts in 1 year. A clinical breast exam by your physician is recommended on an annual basis and results should be correlated with mammographic findings. Electronically signed and approved by: Jose Luis Delgado M.D. Radiologis
== END | disposition home or self-care (01) ==
LOC: RADMAMWWP 13:28
PROVIDERS: ATTEND Family Medicine
DX: Z12.31 Encounter for screening mammogram for malignant neoplasm of breast (principal); Z78.0 Asymptomatic menopausal state
CPT/HCPCS: 77063; 77067

== ENCOUNTER 2021-08-01 08:18 | Day surgery (SDC) | payer MEDICARE, OTHER ==
[2021-07-30 13:30] VITALS: BMI 30.9
--- NOTE | 2021-07-31 10:01 | HP ---
HISTORY AND PHYSICAL CHIEF COMPLAINT: Right hand pain and numbness. HISTORY OF PRESENT ILLNESS: The patient is a 71-year-old retired female who presents with progressive right hand pain and numbness for the past several years, worsening recently. She notes hand pain and numbness that radiates into her forearm. It is worse with gripping and grasping. She also has night symptoms. She has been using a brace and in addition had injections and tried medications with only temporary partial relief. PAST MEDICAL HISTORY: Significant for previous CVA, type 2 diabetes, hypercholesterolemia, hypertension. PAST SURGICAL HISTORY: Significant for previous oral surgery and cholecystectomy. CURRENT MEDICATIONS: Amlodipine, atorvastatin, lisinopril, and metformin. ALLERGIES: SHE NOTES ALLERGIES TO ASPIRIN. FAMILY HISTORY: Significant for heart disease and cancer and diabetes. SOCIAL HISTORY: Negative for current tobacco or alcohol use. REVIEW OF SYSTEMS: 16-point review of systems otherwise reviewed and is noncontributory. PHYSICAL EXAMINATION: On examination, the patient is approximately 5 foot 4, 194 pounds of endomorphic habitus. HEENT exam is nonfocal. NECK is supple. She is nontender about the right shoulder and elbow. On examination of her right wrist, she has a positive Tinel's over the carpal canal radiating to the thumb, index and middle fingers. Adductor pollicis brevis strength on the right 4+ over 5. She has full digital range of motion. Mild thenar wasting is noted. IMPRESSION: 1. Right carpal tunnel syndrome-symptomatic. 2. History of cerebrovascular accident. RECOMMENDATIONS: I talked to the patient at length regarding her condition along with treatment options. At this point, she remains quite symptomatic despite previous conservative measures. After thorough discussion, she elected to proceed with surgery. We will plan to proceed with right carpal tunnel release. We will likely perform as an outpatient procedure utilizing local anesthetic and IV sedation. Risks and benefits were discussed at length in layman's terms. MMODL / IJN: [id number] /
[~2021-08-01 08:18] MED LIST changes: +DEXAMETHASONE SOD PHOSPHATE 4 MG/ML 1 ML VIAL IV ONE; +HYDROmorphone 0.5 MG/0.5 ML SYRINGE IVP PRN; +MIDAZOLAM 2 MG/2 ML VIAL IV PRN; +ONDANSETRON 4 MG/2 ML VIAL IVP ONE
[2021-08-01 09:47] VITALS: TEMP 97
[2021-08-01 09:57] LABS: Glucose,Whole Blood 133 mg/dL (75-99)
[2021-08-01] MEDS ORDERED: fentaNYL (PF) 50 MCG/ML 2 ML AMP ONE (10:18)
[2021-08-01] MEDS ORDERED: LIDOCAINE 2% INJ 20 MG/ML (2 ML VIAL) ONE (10:18)
[2021-08-01] MEDS ORDERED: PROPOFOL 10 MG/ML 20 ML VIAL IV ONE (10:18)
[2021-08-01] MEDS ORDERED: MIDAZOLAM 2 MG/2 ML VIAL ONE (10:18)
[2021-08-01] MEDS ORDERED: BUPIVACAINE (PF) 0.25% 30 ML VIAL SQ ONE ×3 (10:21→10:35)
--- NOTE | 2021-08-01 10:51 | P.OP ---
Date of Procedure: 08/01/21 Preoperative Diagnosis: Right carpal tunnel syndromesymptomatic Postoperative Diagnosis: Same Procedure(s) Performed: Right carpal tunnel release Anesthesia: MAC, local Surgeon: Asad Fry Estimated Blood Loss (ml): 1 Pathology: none sent Condition: stable Disposition: PACU Indications for Procedure: The patient's a 71-year-old female presents with progressive right hand pain and numbness despite conservative measures. A discussion the risks and benefits of operative intervention versus continued conservative measures was made with patient. She opted proceed with surgery. Operative risks to include infection, neurovascular injury, development of blood clots, possible incomplete resolution of symptoms, possible recurrence need for subsequent procedures was discussed. Informed consent was obtained. Operative Findings: As below Description of Procedure: The patient was brought to the operating room, and after induction of IV sedation the right upper extremity was prepped and draped in normal fashion. The proposed incision site was outlined skin marker in line with the radial aspect the fourth ray extending from the volar wrist crease distally 2-1/2 cm. One quarter percent plain Marcaine was injected into the proposed incision site. 9 mL was utilized. The tourniquet was inflated to 250 mmHg. The skin incision was then made. The skin was incised sharply. Subcutaneous tissues were divided sharply the superficial palmar fascia was identified and split in line with the skin incision. The transverse carpal ligament was identified and transected under direct visualization distally to level the palmar fat pad. Proximal was taken level of the volar wrist crease. A plane above and below the transverse carpal ligament was then bluntly developed with tenotomies. The confluence of the distal forearm fascia and the transverse carpal ligament was then transected under direct visualization proximally with the tines pointed in the ulnar direction. I felt this was adequate proximal release. Neural lysis was not performed. The wound was irrigated with normal saline. Electrocautery was used for hemostasis. The skin was reapproximated with simple 4-0 nylon sutures. A sterile dressing was applied. The tourniquet was deflated with less than 15 minutes total tourniquet time. Patient was awoken from sedation and transferred to the recovery room in good condition. Blood loss was estimated 1 mL. No complications were incurred. Sponge and needle counts were correct at the end the case.
[2021-08-01 11:19] VITALS: BP 118/77; PULSE 69; RESP 16
== END 2021-08-01 11:45 | disposition home or self-care (01) ==
LOC: OR 08:18
PROVIDERS: ATTEND Orthopaedic Surgery
DX: G56.01 Carpal tunnel syndrome, right upper limb (principal); E11.22 Type 2 diabetes mellitus with diabetic chronic kidney disease; I12.9 Hypertensive chronic kidney disease with stage 1 through stage 4 chronic kidney disease, or unspecified chronic kidney disease; N18.30 Chronic kidney disease, stage 3 unspecified; E78.00 Pure hypercholesterolemia, unspecified; E78.5 Hyperlipidemia, unspecified; I69.351 Hemiplegia and hemiparesis following cerebral infarction affecting right dominant side; Z79.899 Other long term (current) drug therapy; Z79.84 Long term (current) use of oral hypoglycemic drugs; Z88.6 Allergy status to analgesic agent; Z90.49 Acquired absence of other specified parts of digestive tract; Z98.890 Other specified postprocedural states; Z97.2 Presence of dental prosthetic device (complete) (partial); Z82.49 Family history of ischemic heart disease and other diseases of the circulatory system; Z83.3 Family history of diabetes mellitus
CPT/HCPCS: 84132; 64721; J2250; J1100; J0690; J2405; J3010; J2704; J2001

== ENCOUNTER 2021-10-13 15:45 | Observation (INO) | payer MEDICARE, OTHER ==
--- NOTE | 2021-10-13 16:17 | ED ---
General Adult HPI - General Chief complaint: Syncope Stated complaint: syncope Time Seen by Provider: 10/13/21 16:02 Source: patient, EMS, RN notes reviewed, old records reviewed Mode of arrival: EMS Limitations: no limitations - History of Present Illness Initial comments: 71-year-old female syncopal episode while doing dishes. Patient had no precedin g symptoms or she was found by family members. She denies any new pain complaints. Denies anticoagulation. No new medications. No vomiting or diarrhea. She states she was perfectly well up until this point. She is on medication but is unable to remember what meds she is currently taking. No f ever or chills. No cough, mild dyspnea. No lower extremity pain or swelling. No focal numbness or weakness. - Related Data Home Medications Medication Instructions Recorded Confirmed amLODIPine [Norvasc] 10 mg PO DAILY 12/15/16 10/13/21 Atorvastatin [Lipitor] 10 mg PO DAILY 05/03/20 10/13/21 lisinopriL 30 mg PO DAILY 05/03/20 10/13/21 Acetaminophen [Tylenol] 1,000 mg PO HS 07/30/21 10/13/21 metFORMIN HCL [Glucophage] 500 mg PO BID 07/30/21 10/13/21 Allergies Allergy/AdvReac Type Severity Reaction Status Date / Time aspirin Allergy Nausea & Verified 10/13/21 17:49 Vomiting Review of Systems ROS Statement: Those systems with pertinent positive or pertinent negative responses have been documented in the HPI. ROS Other: All systems not noted in ROS Statement are negative. 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 History of Any Multi-Drug Resistant Organisms: None Reported Past Surgical History: Cholecystectomy Additional Past Surgical History / Comment(s): as child, carpal tunnel Past Anesthesia/Blood Transfusion Reactions: No Reported Reaction, Family Histo ry of Problems w/ Anesthesia Additional Past Anesthesia/Blood Transfusion Reaction / Comment(s): sister ponc Past Psychological History: No Psychological Hx Reported Smoking Status: Never smoker Past Alcohol Use History: None Reported Past Drug Use History: None Reported - Past Family History Sister(s) Family Medical History: Cancer General Exam Limitations: no limitations General appearance: alert, in no apparent distress Head exam: Present: atraumatic, normocephalic Eye exam: Present: normal appearance, PERRL ENT exam: Present: normal exam Neck exam: Present: normal inspection. Absent: tenderness, meningismus Respiratory exam: Present: normal lung sounds bilaterally. Absent: respiratory distress, wheezes Cardiovascular Exam: Present: regular rate, normal rhythm GI/Abdominal exam: Present: soft. Absent: distended, tenderness, guarding Extremities exam: Present: normal inspection, normal capillary refill. Absent: pedal edema Neurological exam: Present: alert, oriented X3, CN II-XII intact. Absent: motor sensory deficit Psychiatric exam: Present: normal affect, normal mood Skin exam: Present: warm, dry, intact. Absent: cyanosis, diaphoretic Course Vital Signs 10/13/21 10/13/21 15:50 18:23 Temperature 99.4 F Pulse Rate 82 73 Respiratory 20 20 Rate Blood Pressure 133/73 121/60 O2 Sat by Pulse 97 95 Oximetry - Reevaluation(s) Reevaluation #1: 10/13/21 16:15 Has an episode of bradycardia into the low 40s. Symptomatic at the time with lightheadedness diaphoresis EKG Findings - EKG Comments: EKG Findings:: EKG: Sinus rhythm rate of 80, NM interval 177, QRS duration 81, QTC 397, no ST segment elevation Medical Decision Making - Medical Decision Making 71-year-old female with syncopal episode. Upon arrival patient's initial heart rate was in the 70s and 80s, she had an episode of bradycardia into the high 30s and sustained in the 40s and which she was quite symptomatic. This appeared to be sinus bradycardia on the monitor. This resolved after. About 10 minutes and remained stable throughout her ER stay after this. Workup was initiated including chest x-ray, laboratory testing. She had a CBC showing leukopenia and thrombocytopenia. Stable hemoglobin. Electrolytes revealed a mild hyponatremia and CO2 of 14 with a creatinine of 1.28. Troponin negative. D- dimer was 2.88, CT angiography was performed which is negative for pulmonary emboli showing multiple pulmonary nodules. CT brain was performed negative for intracranial hemorrhage or mass effect per she will be admitted and monitored on telemetry for this bradycardic episode likely the cause of her syncopal episode. Case discussed with Dr. Sparks. - Lab Data Result diagrams: 10/13/21 16:17 10/13/21 16:17 Lab Results 10/13/21 10/13/21 10/13/21 Range/Units 16:17 16:17 16:17 WBC 2.4 L (3.8-10.6) k/uL RBC 3.94 (3.80-5.40) m/uL Hgb 12.4 (11.4-16.0) gm/dL Hct 36.3 (34.0-46.0) % MCV 92.1 (80.0-100.0) fL MCH 31.5 (25.0-35.0) pg MCHC 34.2 (31.0-37.0) g/dL RDW 12.8 (11.5-15.5) % Plt Count 123 L (150-450) k/uL MPV 8.9 Neutrophils % 38 % Lymphocytes % 47 % Monocytes % 9 % Eosinophils % 0 % Basophils % 1 % Neutrophils # 0.9 L (1.3-7.7) k/uL Lymphocytes # 1.1 (1.0-4.8) k/uL Monocytes # 0.2 (0-1.0) k/uL Eosinophils # 0.0 (0-0.7) k/uL Basophils # 0.0 (0-0.2) k/uL Manual Slide Review Performed PT 10.8 (9.0-12.0) sec INR 1.0 (<1.2) APTT 26.4 (22.0-30.0) sec D-Dimer 2.88 H (<0.60) mg/L FEU Sodium 133 L (137-145) mmol/L Potassium 3.7 (3.5-5.1) mmol/L Chloride 105 (98-107) mmol/L Carbon Dioxide 14 L (22-30) mmol/L Anion Gap 14 mmol/L BUN 24 H (7-17) mg/dL Creatinine 1.28 H (0.52-1.04) mg/dL Est GFR (CKD-EPI)AfAm 48 (>60 ml/min/1.73 sqM) Est GFR (CKD-EPI)NonAf 42 (>60 ml/min/1.73 sqM) Glucose 122 H (74-99) mg/dL Calcium 8.0 L (8.4-10.2) mg/dL Magnesium 1.6 (1.6-2.3) mg/dL Total Bilirubin 0.4 (0.2-1.3) mg/dL AST 36 (14-36) U/L ALT 30 (4-34) U/L Alkaline Phosphatase 61 (38-126) U/L Troponin I (0.000-0.034) ng/mL Total Protein 6.6 (6.3-8.2) g/dL Albumin 3.8 (3.5-5.0) g/dL 10/13/21 Range/Units 16:17 WBC (3.8-10.6) k/uL RBC (3.80-5.40) m/uL Hgb (11.4-16.0) gm/dL Hct (34.0-46.0) % MCV (80.0-100.0) fL MCH (25.0-35.0) pg MCHC (31.0-37.0) g/dL RDW (11.5-15.5) % Plt Count (150-450) k/uL MPV Neutrophils % % Lymphocytes % % Monocytes % % Eosinophils % % Basophils % % Neutrophils # (1.3-7.7) k/uL Lymphocytes # (1.0-4.8) k/uL Monocytes # (0-1.0) k/uL Eosinophils # (0-0.7) k/uL Basophils # (0-0.2) k/uL Manual Slide Review PT (9.0-12.0) sec INR (<1.2) APTT (22.0-30.0) sec D-Dimer (<0.60) mg/L FEU Sodium (137-145) mmol/L Potassium (3.5-5.1) mmol/L Chloride (98-107) mmol/L Carbon Dioxide (22-30) mmol/L Anion Gap mmol/L BUN (7-17) mg/dL Creatinine (0.52-1.04) mg/dL Est GFR (CKD-EPI)AfAm (>60 ml/min/1.73 sqM) Est GFR (CKD-EPI)NonAf (>60 ml/min/1.73 sqM) Glucose (74-99) mg/dL Calcium (8.4-10.2) mg/dL Magnesium (1.6-2.3) mg/dL Total Bilirubin (0.2-1.3) mg/dL AST (14-36) U/L ALT (4-34) U/L Alkaline Phosphatase (38-126) U/L Troponin I <0.012 (0.000-0.034) ng/mL Total Protein (6.3-8.2) g/dL Albumin (3.5-5.0) g/dL Disposition Clinical Impression: Syncope, Bradycardia Disposition: ADMITTED IP TO THIS HOSP Condition: Stable Is patient prescribed a controlled substance at d/c from ED?: No Referrals: Nasir Otto [Primary Care Provider] - 1-2 days Time of Disposition: 20:26
[2021-10-13 16:24] LABS: Basophils % (A) 1 %; Eosinophils % (A) 0 %; HCT 36.3 % (34.0-46.0); HGB 12.4 gm/dL (11.4-16.0); Lymphocytes # (A) 1.1 k/uL (1.0-4.8); Lymphocytes % (A) 47 %; MCH 31.5 pg (25.0-35.0); MCHC 34.2 g/dL (31.0-37.0); MCV 92.1 fL (80.0-100.0); Mean Platelet Volume 8.9; Monocytes # (A) 0.2 k/uL (0-1.0); Monocytes % (A) 9 %; Neutrophils # (A) 0.9 k/uL (1.3-7.7); Neutrophils % (A) 38 %; Platelet Count 123 k/uL (150-450); RBC 3.94 m/uL (3.80-5.40); RDW 12.8 % (11.5-15.5); WBC 2.4 k/uL (3.8-10.6)
[2021-10-13 16:33] LABS: Albumin 3.8 g/dL (3.5-5.0); Magnesium 1.6 mg/dL (1.6-2.3); Potassium 3.7 mmol/L (3.5-5.1); Total Bilirubin 0.4 mg/dL (0.2-1.3); Total Protein 6.6 g/dL (6.3-8.2)
[2021-10-13 17:00] LABS: Partial Thromboplastin Time 26.4 sec (22.0-30.0); Prothrombin Time 10.8 sec (9.0-12.0)
[2021-10-13] MEDS ORDERED: SODIUM CHLORIDE 0.9% 1,000 ML IV ONE (17:40)
--- NOTE | 2021-10-13 18:49 | XR ---
EXAMINATION TYPE: XR chest 1V portable DATE OF EXAM: 10/13/2021 6:04 PM COMPARISON: Chest radiographs from 12/15/2016 TECHNIQUE: XR chest 1V portable Frontal view of the chest. CLINICAL INDICATION:Female, 71 years old with history of syncope; FINDINGS: Lungs/Pleura: There is no evidence of pleural effusion, focal consolidation, or pneumothorax. Pulmonary vascularity: Unremarkable. Heart/mediastinum: Cardiomediastinal silhouette is unremarkable. Musculoskeletal: No acute osseous pathology. IMPRESSION: No acute cardiopulmonary disease/process.
--- NOTE | 2021-10-13 19:34 | CT ---
EXAMINATION TYPE: CT brain wo con CT DLP: 1055.4 mGycm, Automated exposure control for dose reduction was used. DATE OF EXAM: 10/13/2021 6:58 PM COMPARISON: CT brain 02/05/2016 CLINICAL INDICATION:Female, 71 years old with history of syncope, Syncope TECHNIQUE: Brain: Axial CT images of the brain were obtained with coronal and sagittal reformats created and rev iewed. Contrast used: None. Oral contrast used: None. FINDINGS: Brain: Extra-axial spaces: No abnormal extra-axial fluid collections. Ventricular system: Dilatation in proportion to cerebral atrophy. Cerebral parenchyma: Cerebral atrophy. No acute intraparenchymal hemorrhage or mass effect. The sanchez -white junction is well differentiated. Cerebellum: Unremarkable. Mass effect: No evidence of midline shift. Intracranial vasculature: unremarkable Soft tissues: Normal. Calvarium/osseous structures: No depressed skull fracture. Paranasal sinuses and mastoid air cells: Mild scattered paranasal sinus disease. Visualized orbits: Orbital contents are intact. IMPRESSION: 1. No acute intracranial process. 2. Nonspecific white matter changes, likely secondary to chronic small vessel ischemic disease.
--- NOTE | 2021-10-13 19:46 | CT ---
EXAMINATION TYPE: CT angio chest CT DLP: 322.5 mGycm, Automated exposure control for dose reduction was used. DATE OF EXAM: 10/13/2021 6:59 PM COMPARISON: Chest radiograph from same day. CLINICAL INDICATION:Female, 71 years old with history of mariusz pos dimer; R/O PE. Elevated D Dimer. MARIUSZ TECHNIQUE/CONTRAST: CTA scan of the thorax is performed with IV Contrast, patient injected with 80 ML mL of Isovue 370, p ulmonary embolism protocol. MIP images are created and reviewed. FINDINGS: Pulmonary Artery: There is no evidence for a filling defect within the pulmonary vasculature to sugge st acute pulmonary embolism. The pulmonary artery is of normal size. Lungs/Pleura: No evidence of focal consolidation, pleural effusion or pneumothorax. Left posterior Venkatesh chdalek fat-containing hernia. * Left lower lobe 6 mm pulmonary nodule image 94. * Left minor fissure intrafissural lymph node image 73. * Left upper lobe 5 mm pulmonary nodule image 60. * Right lower lobe 6 mm pulmonary nodule image 79. * Right lower lobe 3 mm pulmonary nodule image 121 Heart: The heart is mildly enlarged for size. Vasculature: No evidence of aortic aneurysm. There is a 4 vessel aortic arch with the left vertebral artery origin off the aortic arch. Mediastinum: No gross evidence of adenopathy. Musculoskeletal: No acute osseous abnormalities Soft Tissues: Unremarkable. Lower neck: No significant findings. Upper Abdomen: Diffuse low-attenuation to the liver. IMPRESSION: 1. No evidence of pulmonary embolism 2. Scattered pulmonary nodules measuring up to 6 mm, short-term follow-up is recommended in 6 months to ensure stability. 3. Hepatic steatosis.
[2021-10-13] MEDS ORDERED: NALOXONE 0.4 MG/ML 1 ML VIAL IV PRN (20:21)
[2021-10-13] MEDS ORDERED: ACETAMINOPHEN TAB 325 MG TAB PO PRN (20:21)
[2021-10-13] MEDS: SODIUM CHLORIDE 0.9% 1,000 ML IV SCH (20:43)
[2021-10-13 23:40] VITALS: RESP 18
[2021-10-14] MEDS ORDERED: ONDANSETRON 4 MG/2 ML VIAL IVP PRN (00:18)
[2021-10-14] MEDS ORDERED: MELATONIN 3 MG TABLET PO PRN (00:18)
--- NOTE | 2021-10-14 00:43 | P.HPIM ---
History of Present Illness H&P Date: 10/13/21 Chief Complaint: syncope 71 year old female with DM on oral hypoglycemic agents, h/o CVA with right sided residual weakness she comes in today by EMS , after experiencing a syncopal episode, she claims to be at her baseline status of health, went about her day as normal , was an active day in general with no limitations, and later during the day while washing dishes, she suddenly passed out and woke up with her family around her, feeling normal , denies any associated symptoms before or after the episode, family heard a thud and came to find her on the floor, waking up not knowing what happened,. denies any associated dizziness, palpitations, chest pain or trouble breathing. denies any URI symptoms, fever chills. she denies ever experiencing anything like this, except for years ago , when she had a reaction to some medications that she does not remember and resulted in experiencing something similar . she denies any associated tongue biting, or loss of bladder or bowel control , family did not report any seizure like activity. she does have chronic low back pain, and residual right sided weakness from prior stroke , she does not use any walking aids. she denies any recent travel or sick contacts, she was hospitalized back in july for carpal tunnel surgery . she did experience an episode or two of diarrhea yesterday that she took immodium for while seen in the ED, it was noted that she had an episode of bradycardia into the 40s and was symptomatic with dizziness. workup inthe ED otherwise showed elevated D dimer, CTA of the chest no acute PE. but showed multiple pulmonary nodules , patient denies smoking, denies any hemoptysis or weight loss. blood work showed CKD , stable , bicytopenia Review of Systems Pertinent positives as noted in HPI. 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, carpal tunnel right hand, wears hand brace., sciatica pain, diet controlled diabetes, Stage 3 CKD, History of Any Multi-Drug Resistant Organisms: None Reported Past Surgical History: Cholecystectomy Additional Past Surgical History / Comment(s): as child, carpal tunnel Past Anesthesia/Blood Transfusion Reactions: No Reported Reaction, Family History of Problems w/ Anesthesia Additional Past Anesthesia/Blood Transfusion Reaction / Comment(s): sister ponc Past Psychological History: No Psychological Hx Reported Smoking Status: Never smoker Past Alcohol Use History: None Reported Past Drug Use History: None Reported - Past Family History Sister(s) Family Medical History: Cancer, Coronary Artery Disease (CAD) Medications and Allergies Home Medications Medication Instructions Recorded Confirmed Type amLODIPine [Norvasc] 10 mg PO DAILY 12/15/16 10/13/21 History Atorvastatin [Lipitor] 10 mg PO DAILY 05/03/20 10/13/21 History lisinopriL 30 mg PO DAILY 05/03/20 10/13/21 History Acetaminophen [Tylenol] 1,000 mg PO HS 07/30/21 10/13/21 History metFORMIN HCL [Glucophage] 500 mg PO BID 07/30/21 10/13/21 History Allergies Allergy/AdvReac Type Severity Reaction Status Date / Time aspirin Allergy Nausea & Verified 10/13/21 17:49 Vomiting Physical Exam Vitals: Vital Signs Temp Pulse Resp BP Pulse Ox 10/13/21 18:23 73 20 121/60 95 10/13/21 15:50 99.4 F 82 20 133/73 97 Intake and Output 10/13/21 10/13/21 10/13/21 06:59 14:59 22:59 Other: Weight 86.636 kg Constitutional: No acute distress, conversant, pleasant Eyes: Anicteric sclerae, moist conjunctiva, Pupils equal round reactive to light ENMT: NC/AT Oropharynx clear, no erythema, or exudates Neck: Supple, FROM, no masses, or JVD No carotid bruits No thyromegaly Lungs: Clear to auscultation Clear to percussion Normal respiratory effort, no accessory muscle use Cardiovascular: Heart regular in rate and rhythm, No murmurs, gallops, or rubs No peripheral edema Abdominal: Soft Nontender, no guarding, rebound or rigidity Abdomen moving with respiration Normoactive bowel sounds No hepatomegaly, No splenomegaly No palpable mass No abdominal wall hernia noted Skin: Normal temperature, tone, texture, turgor No induration No subcutaneous nodules No rash, lesions No ulcers Extremities: No digital cyanosis No clubbing Pedal pulses intact and symmetrical Radial pulses intact and symmetrical No calf tenderness Psychiatric: Alert and oriented to person, place and time Appropriate affect fair judgement Neuro Muscles Strength 5/5 in ;left upper and lower extremity , 4/5 right upper and lower extremity Sensation to light touch grossly present throughout Cranial nerves II-XII grossly intact No focal sensory deficits Lymphatics: no palpable cervical or supraclavicular , or inguinal lymph nodes Results CBC & Chem 7: 10/13/21 16:17 10/13/21 16:17 Labs: Abnormal Lab Results - Last 24 Hours (Table) 10/13/21 10/13/21 10/13/21 Range/Units 16:17 16:17 16:17 WBC 2.4 L (3.8-10.6) k/uL Plt Count 123 L (150-450) k/uL Neutrophils # 0.9 L (1.3-7.7) k/uL D-Dimer 2.88 H (<0.60) mg/L FEU Sodium 133 L (137-145) mmol/L Carbon Dioxide 14 L (22-30) mmol/L BUN 24 H (7-17) mg/dL Creatinine 1.28 H (0.52-1.04) mg/dL Glucose 122 H (74-99) mg/dL Calcium 8.0 L (8.4-10.2) mg/dL Assessment and Plan Assessment: syncope symptomatic bradycardia quality assurance monitor fall precautions cardiology consult check echo check carotid US CTA chest showed no acute PE Brain CT no acute pathology denies any cardiac history hypertension resume amlodipine lisinopril CKD 3 stable avoid nephrotoxic meds monitor renal function monitor urine output DM insulin sliding scale A1C elevated d dimer oxygen sat within normal limits on room air CTA no acute PE , positive for multiple pulmonary nodules 6mm in size follow up OP in [address] of the chest h/o CVA with left residual weakness bicytopenia (platelets and WBC ) monitor , and consider hematology consult IP vs OP full code DVT PPX heparin sc tid
[2021-10-14 07:32] LABS: Glucose,Whole Blood 129 mg/dL (70-110)
--- NOTE | 2021-10-14 07:54 | US ---
EXAMINATION TYPE: US carotid duplex BILAT DATE OF EXAM: 10/14/2021 COMPARISON: NONE CLINICAL HISTORY: syncope. Syncope TECHNIQUE: Carotid duplex ultrasound examination. Indirect Doppler criteria was utilized. FINDINGS: EXAM MEASUREMENTS: RIGHT: Peak Systolic Velocity (PSV) cm/sec ----- Right CCA: 90.9 ----- Right ICA: 110 ----- Right ECA: 115 ICA/CCA ratio: 1.2 RIGHT: End Diastole cm/sec ----- Right CCA: 18.8 ----- Right ICA: 24.0 ----- Right ECA: 13.9 LEFT: Peak Systolic Velocity (PSV) cm/sec ----- Left CCA: 81.5 ----- Left ICA: 93.0 ----- Left ECA: 115 ICA/CCA ratio: 1.1 LEFT: End Diastole cm/sec ----- Left CCA: 15.5 ----- Left ICA: 20.1 ----- Left ECA: 9.7 VERTEBRALS (direction of flow): Right Vertebral: Antegrade Left Vertebral: Antegrade Rhythm: Normal CAKE WINDER NOTES: No significant stenosis seen Taylor scale images show no significant focal plaque at carotid bulb level bilaterally. IMPRESSION: No hemodynamically significant stenosis in either internal carotid artery. Criteria for Assigning % of Stenosis / Diameter reduction (Estimation based on the indirect measurements of the internal carotid artery velocities (ICA PSV). 1. Normal (no stenosis)=ICA PSV < 125 cm/s: ratio < 2.0: ICA EDV<40 cm/s. 2. Less than 50% stenosis=ICA PSV < 125 cm/s: ratio < 2.0: ICA EDV<40 cm/s. 3. 50 to 69% stenosis=ICA PSV of 125 to 230 cm/s: ration 2.0 ? 4.0: ICA EDV 40-100 cm/s. 4. Greater than 70% stenosis to near occlusion= ICA PSV > 230 cm/s: ratio > 4.0: ICA EDV > 100 cm/s. 5. Near occlusion= ICA PSV velocities may be low or undetectable: variable ratio and ICA EDV. 6. Total occlusion=unable to detect flow.
[2021-10-14] MEDS ORDERED: HEPARIN SODIUM,PORCINE/PF 5,000 UNIT/0.5 ML SYRINGE SQ SCH (08:00)
[2021-10-14] MEDS: INSULIN ASPART (NovoLOG) 100 UNIT/ML VIAL SQ SCH ×2 (08:12→13:02)
[2021-10-14] MEDS: SODIUM CHLORIDE 0.9% 1,000 ML IV SCH (08:14)
[2021-10-14 08:17] VITALS: TEMP 98
[2021-10-14] MEDS ORDERED: ATORVASTATIN 10 MG TAB PO SCH (09:00)
[2021-10-14] MEDS ORDERED: amLODIPine 10 MG TAB PO SCH (09:00)
[2021-10-14] MEDS ORDERED: lisinopriL 20 MG TAB PO SCH ×2 (09:00)
--- NOTE | 2021-10-14 11:10 | P.CRDCN ---
History of Present Illness Consult date: 10/14/21 Requesting physician: Mery Khoury Reason for Consult (text): syncope Chief complaint: syncope History of present illness: This is a pleasant 71-year-old female with history of hypertension, hyperlipidemia, diabetes, prior hemorrhagic stroke in 2016 with residual right- sided weakness, and CKD. 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 She presented to the emergency department after having a syncopal episode at home. She was apparently in her kitchen doing dishes and turned to grab a towel and suddenly lost consciousness. She believes she was only out for a couple of minutes. When she came to she felt fine. She had no symptoms leading up to the event. She denies losing loss of bowel or bladder control. Her only complaints leading up to and after have been low back and right sciatic nerve pain which she's been doing with on and off in the past. Computed tomography scan of the brain showed no acute intracranial process, nonspecific white matter changes likely secondary to chronic small vessel ischemic disease. Chest x-ray showed no acute cardiopulmonary disease/process. CTA of the chest showed no evidence of pulmonary embolism, scattered pulmonary nodules measuring up to 6 mm short- term follow-up is recommended in 6 months to ensure stability and hepatic steatosis. EKG showed sinus rhythm. There was mention in the ER note of some bradycardia with heart rates in the 40s at which time the patient according to the note felt lightheaded the patient denies feeling any lightheadedness or dizziness since admission. Carotid duplex study showed no hemodynamically significant stenosis in either internal carotid artery. Upon examination the patient is sitting up on the side of the bed eating breakfast. She's had no chest discomfort, shortness of breath, dizziness, lightheadedness, palpitations, orthopnea or PND. She's had no further episodes of syncope. Laboratory values showed sodium 133, troponins negative 1 and worsening renal function since June with a BUN of 24, creatinine 1.28 and GFR 42. 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, carpal tunnel right hand, wears hand brace., sciatica pain, diet controlled diabetes, Stage 3 CKD, History of Any Multi-Drug Resistant Organisms: None Reported Past Surgical History: Cholecystectomy Additional Past Surgical History / Comment(s): as child, carpal tunnel Past Anesthesia/Blood Transfusion Reactions: No Reported Reaction, Family History of Problems w/ Anesthesia Additional Past Anesthesia/Blood Transfusion Reaction / Comment(s): sister ponc Past Psychological History: No Psychological Hx Reported Smoking Status: Never smoker Past Alcohol Use History: None Reported Past Drug Use History: None Reported - Past Family History Sister(s) Family Medical History: Cancer, Coronary Artery Disease (CAD) Medications and Allergies Home Medications Medication Instructions Recorded Confirmed Type amLODIPine [Norvasc] 10 mg PO DAILY 12/15/16 10/13/21 History Atorvastatin [Lipitor] 10 mg PO DAILY 05/03/20 10/13/21 History lisinopriL 30 mg PO DAILY 05/03/20 10/13/21 History Acetaminophen [Tylenol] 1,000 mg PO HS 07/30/21 10/13/21 History metFORMIN HCL [Glucophage] 500 mg PO BID 07/30/21 10/13/21 History Allergies Allergy/AdvReac Type Severity Reaction Status Date / Time aspirin Allergy Nausea & Verified 10/13/21 17:49 Vomiting Physical Exam Vitals: Vital Signs Temp Pulse Pulse Resp BP BP Pulse Ox 10/14/21 07:00 98.0 F 63 114/67 97 10/14/21 02:00 98.2 F 58 L 18 122/73 94 L 10/13/21 23:39 98.3 F 67 18 122/73 97 10/13/21 18:23 73 20 121/60 95 10/13/21 15:50 99.4 F 82 20 133/73 97 Intake and Output 10/13/21 10/14/21 10/14/21 22:59 06:59 14:59 Intake Total 250 Balance 250 Intake: Oral 250 Other: Voiding Method Toilet # Voids 2 Weight 86.636 kg 86.636 kg PHYSICAL EXAMINATION: This is a 71-year-old female in no apparent distress at the time of my examination. VITAL SIGNS: Blood pressure 114/67, heart rate 63, respirations 18, temp 98F. Patient is 97 % on room air. HEENT: Head is atraumatic, normocephalic. Pupils are equal, round. Sclerae anicteric. Conjunctivae are clear. Mucous membranes of the mouth are moist. Neck is supple. There is no elevated jugular venous pressure. No carotid bruit is heard. CHEST EXAMINATION: Clear to auscultation bilaterally. No wheezes rales or r honchi. Respirations even and nonlabored. HEART EXAMINATION: Heart regular, positive S1 and S2. No S3. No S4. No clicks, rubs or murmurs. ABDOMEN: Soft, nontender. Bowel sounds are heard. No organomegaly noted. EXTREMITIES: 2+ peripheral pulses with no evidence of peripheral edema and no c alex tenderness noted. NEUROLOGIC EXAMINATION: Patient is awake, alert and oriented x3. Results 10/13/21 16:17 10/13/21 16:17 Cardiac Enzymes 10/13/21 10/13/21 10/14/21 Range/Units 16:17 16: 00:37 AST 36 (14-36) U/L Lactate Dehydrogenase 613 (313-618) U/L Troponin I <0.012 (0.000-0.034) ng/mL Coagulation 10/13/21 Range/Units 16:17 PT 10.8 (9.0-12.0) sec APTT 26.4 (22.0-30.0) sec CBC 10/13/21 Range/Units 16:17 WBC 2.4 L (3.8-10.6) k/uL RBC 3.94 (3.80-5.40) m/uL Hgb 12.4 (11.4-16.0) gm/dL Hct 36.3 (34.0-46.0) % Plt Count 123 L (150-450) k/uL Comprehensive Metabolic Panel 10/13/21 Range/Units 16:17 Sodium 133 L (137-145) mmol/L Potassium 3.7 (3.5-5.1) mmol/L Chloride 105 (98-107) mmol/L Carbon Dioxide 14 L (22-30) mmol/L BUN 24 H (7-17) mg/dL Creatinine 1.28 H (0.52-1.04) mg/dL Glucose 122 H (74-99) mg/dL Calcium 8.0 L (8.4-10.2) mg/dL AST 36 (14-36) U/L ALT 30 (4-34) U/L Alkaline Phosphatase 61 (38-126) U/L Total Protein 6.6 (6.3-8.2) g/dL Albumin 3.8 (3.5-5.0) g/dL Current Medications Generic Name Dose Route Start Last Admin Trade Name Freq PRN Reason Stop Dose Admin Acetaminophen 650 mg 10/13/21 20:21 10/14/21 03:27 Acetaminophen Tab 325 Mg Tab PO 650 mg Q6HR PRN Administration Mild Pain or Fever > 100.5 Amlodipine Besylate 10 mg 10/14/21 09:00 10/14/21 08:13 Amlodipine 10 Mg Tab PO 10 mg DAILY CHAU Administration Atorvastatin Calcium 10 mg 10/14/21 09:00 10/14/21 08:13 Atorvastatin 10 Mg Tab PO 10 mg DAILY CHAU Administration Heparin Sodium (Porcine) 5,000 unit 10/14/21 08:00 10/14/21 08:13 Heparin Sodium,Porcine/Pf 5,000 Unit/0.5 Ml Syringe SQ 5,000 unit Q8HR CHAU Administration Sodium Chloride 1,000 mls @ 75 mls/hr 10/13/21 20:30 10/14/21 08:14 Saline 0.9% IV 75 mls/hr .[id number] CHAU Administration Insulin Aspart 0 unit 10/14/21 07:30 10/14/21 08:12 Insulin Aspart (Novolog) 100 Unit/Ml Vial SQ Not Given ACHS [facility] Protocol Lisinopril 20 mg 10/14/21 09:00 10/14/21 09:05 Lisinopril 20 Mg Tab PO Not Given DAILY CHAU Melatonin 3 mg 10/14/21 00:18 Melatonin 3 Mg Tablet PO HS PRN Insomnia Naloxone HCl 0.2 mg 10/13/21 20:21 Naloxone 0.4 Mg/Ml 1 Ml Vial IV Q2M PRN Opioid Reversal Ondansetron HCl 4 mg 10/14/21 00:18 Ondansetron 4 Mg/2 Ml Vial IVP Q8HR PRN Nausea And Vomiting Intake and Output 10/13/21 10/14/21 10/14/21 22:59 06:59 14:59 Intake Total 250 Balance 250 Intake: Oral 250 Other: Voiding Method Toilet # Voids 2 Weight 86.636 kg 86.636 kg 10/13/21 16:17 10/13/21 16:17 EKG Interpretations (text) Sinus rhythm Assessment and Plan Assessment: #1 syncope of unclear etiology #2 hypertension currently on the low side #3 hyperlipidemia #4 diabetes #5 history of hemorrhagic CVA Plan: From cardiology's perspective we'll obtain a 2-D echo with Doppler study. We will decrease the lisinopril. Ambulate the patient. Check orthostatic blood pressures. If there is no further episodes syncope, no significant bradycardia and no significant abnormalities noted on echocardiogram the patient may be discharged home and will follow-up with her as an outpatient at which time we will discuss possibility of event monitor versus loop recorder implantation. VIDEO CONFERENCE SPECIALIST note has been reviewed, I agree with a documented findings and plan of care. Patient was seen and examined.
[2021-10-14 11:42] VITALS: BP 111/66; PULSE 65
[2021-10-14 12:11] LABS: Glucose,Whole Blood 171 mg/dL (70-110)
--- NOTE | 2021-10-14 12:36 | CA ---
Transthoracic Echo Report Name: Charleen Griffiths Age: 71 Gender: F : 1950 Exam Date: 10/14/2021 10:29 Exam Location: [facility] Ht (in): 64 Wt (lb): 191 Ordering Physician: Mery Khoury MD Attending/Referring Phys: [id number], Peng Finance Manager Jeaneth Powell RDCS Procedure CPT: Indications: Syncope Cardiac Hx: Technical Quality: Fair Contrast 1: Total Dose (mL): Contrast 2: Total Dose (mL): MEASUREMENTS (Male / Female) Normal Values 2D ECHO LV Diastolic Diameter PLAX 3.0 cm 4.2 - 5.9 / 3.9 - 5.3 cm LV Systolic Diameter PLAX 2.0 cm IVS Diastolic Thickness 1.6 cm 0.6 - 1.0 / 0.6 - 0.9 cm LVPW Diastolic Thickness 1.5 cm 0.6 - 1.0 / 0.6 - 0.9 cm LV Relative Wall Thickness 1.0 RV Internal Dim ED PLAX 3.3 cm LA Volume 46.9 cm??? 18 - 58 / 22 - 52 cm??? M-MODE Aortic Root Diameter MM 2.4 cm LA Systolic Diameter MM 2.9 cm LA Ao Ratio MM 1.2 AV Cusp Separation MM 1.9 cm DOPPLER AV Peak Velocity 139.0 cm/s AV Peak Gradient 7.7 mmHg LVOT Peak Velocity 138.9 cm/s LVOT Peak Gradient 7.7 mmHg MV Area PHT 3.5 cm??? Mitral E Point Velocity 90.8 cm/s Mitral A Point Velocity 85.7 cm/s Mitral E to A Ratio 1.1 MV Deceleration Time 215.4 ms MV E' Velocity 9.1 cm/s Mitral E to MV E' Ratio 10.0 FINDINGS Left Ventricle Moderately increased left ventricular wall thickness. Normal left ventricular systolic function with no obvious regional wall motion abnormalities. Left ventricular ejection fraction is estimated at 55-60 %. Right Ventricle Normal right ventricular size and function. Right ventricular systolic pressure within normal limits. Right Atrium Normal right atrial size. Left Atrium Normal left atrial size. No evidence for an atrial septal defect. Mitral Valve Structurally normal mitral valve. Mild mitral annular calcification. Mild mitral regurgitation. Aortic Valve Trileaflet aortic valve. Aortic valve sclerosis. No aortic stenosis. No aortic regurgitation. Tricuspid Valve Structurally normal tricuspid valve. Mild tricuspid regurgitation. Pulmonic Valve Structurally normal pulmonic valve. Trace pulmonic regurgitation. Pericardium No pericardial effusion. Aorta Normal size aortic root and proximal ascending aorta. CONCLUSIONS 1. Normal left ventricle size and systolic function 2. Mild mitral and tricuspid regurgitation. Previewed by: Dr. Alejandro Ortez MD (Electronically Signed) Final Date: 14 October 2021 12:35
[2021-10-14 17:34] LABS: Chol/HDL Ratio 2.49 Ratio; LDL Cholesterol,Calculated 30.4 mg/dL (0.0-131.0)
--- NOTE | 2021-10-14 18:42 | P.DS ---
Providers Date of admission: 10/13/21 20:21 Expected date of discharge: 10/14/21 Attending physician: Mery Khoury MD Consults: 10/13/21 20:21 Consult Physician Routine Consulting Provider: Alejandro Ortez Consult Reason/Comments: Syncope Do you want consulting provider notified?: Yes Primary care physician: Nasir Otto Hospital Course: Discharge Diagnosis: Syncopal episode, patient to follow up outpatient with cardiology to discuss possibility of event monitor versus loop recorder implantation. Hypertension Hyperlipidemia Type 2 diabetes mellitus Hospital Course: Patient is a very pleasant 71-year-old female with a past medical history of CVA with residual right-sided deficits, hypertension, hyperlipidemia, and type II diabetes mellitus. patient presented to the emergency department with a chief complaint of syncopal episode. Patient reports having a normal day and was standing at the sink doing dishes in the next thing she remembers was waking up on the ground. Patient does not remember passing out or falling to the ground and reports awakening feeling back to her normal baseline self. Patient denies having any headache, lightheadedness, dizziness, chest pain, palpitations, shortness of breath, or experiencing an increase or change in her numbness/tingling/weakness in her extremities. Patient does report right hand weakness and decreased sensation secondary to previous CVA.patient underwent full evaluation in the emergency department. She was found to have WBC count of 2.4, platelet count of 123, sodium 133, BUN 24, creatinine 1.28, and GFR 42. Patient's glucose was normal at 122. Troponin was negative at less than 0.012. D-dimer was elevated at 2.88. CTA chest negative for pulmonary emboli but did reveal scattered pulmonary nodules measuring up to [address] brain negative for acute intercranial process. Chest x-ray negative for acute cardiopulmonary process. Carotid ultrasound showing no hemodynamically significant stenosis. EKG showing normal sinus rhythm 80 bpm with no noted T-wave or ST abnormalities showing no signs of acute ischemia. echocardiogram completed revealing EF of 55- 60% .Cardiology recommending outpatient follow-up in our office to discuss the possibility of event monitor versus loop recorder implantation.patient remains free from any complaints since arrival to facility. Vital signs unremarkable and orthostatic vitals negative. She is medically stable for discharge home at this time with no medication changes made. Patient to follow up outpatient with PCP in 1-2 days and cardiology in 1 week. Physical examination: General: non toxic, no distress, appears at stated age Derm: warm, dry Head: atraumatic, normocephalic, symmetric Eyes: EOMI, no lid lag, anicteric sclera Mouth: no lip lesion, mucus membranes moist Cardiovascular: S1S2 reg, Systolic murmur, positive posterior tibial pulse bilateral, Lungs: CTA bilateral, no rhonchi, no rales , no accessory muscle use Abdominal: soft, nontender to palpation, no guarding, no appreciable organomegaly Ext: no gross muscle atrophy, no edema, no contractures Neuro: CN II-XI grossly intact, no focal neuro deficits Psych: Alert, oriented, appropriate affect A total of 37 minutes of time were spent preparing this complex discharge summary. Pt was discharged on 10/14/21 at 2:25 PM Patient Condition at Discharge: Stable Plan - Discharge Summary Discharge Rx Participant: No New Discharge Prescriptions: Continue amLODIPine [Norvasc] 10 mg PO DAILY lisinopriL 30 mg PO DAILY Atorvastatin [Lipitor] 10 mg PO DAILY metFORMIN HCL [Glucophage] 500 mg PO BID Acetaminophen [Tylenol] 1,000 mg PO HS Discharge Medication List amLODIPine [Norvasc] 10 mg PO DAILY 12/15/16 [History] Atorvastatin [Lipitor] 10 mg PO DAILY 05/03/20 [History] lisinopriL 30 mg PO DAILY 05/03/20 [History] Acetaminophen [Tylenol] 1,000 mg PO HS 07/30/21 [History] metFORMIN HCL [Glucophage] 500 mg PO BID 07/30/21 [History] Follow up Appointment(s)/Referral(s): Alejandro Ortez MD [STAFF PHYSICIAN] - 1 Week aNsir Otto [Primary Care Provider] - 1-2 days Patient Instructions/Handouts: Syncope (DC) Activity/Diet/Wound Care/Special Instructions: Activity: As tolerated. Take breaks as needed. Diet: Heart healthy and carb consistent diet. Avoid salts, or foods with hidden salts such as canned or boxed foods and frozen dinners. Extra salt makes your heart work harder and traps the fluid in your body for longer. Special Instructions: Take all of your medications as directed and remember to keep all of your doctor's appointments and follow-up as needed. Remember, as we discussed your CT revealed some pulmonary nodules of unclear etiology which could be just inflammatory..however it is of utmost importance for you to follow up for a repeat CT in 6 months to ensure resolution. This CT can be ordered by her primary care doctor. Please follow up outpatient with holistic health practitioner, Dr. Ortez next week to further discuss the possibility of event monitor versus loop recorder implantation. It is [place] state law stating no driving until free from syncopal episodes for 6 months. It is also recommended to avoid climbing ladders, operating dangerous or heavy machinery or unsupervised swimming until free from syncopal episodes x 6 months. Thank you for allowing us to participate in your care, it was truly a pleasure having you for our patient!!! Discharge Disposition: HOME SELF-CARE
== END 2021-10-14 15:42 | disposition home or self-care (01) ==
LOC: EC 15:45 → 6NMEDSUR 20:21
PROVIDERS: ADMIT Internal Medicine; ATTEND Internal Medicine
DX: R55 Syncope and collapse (principal); I12.9 Hypertensive chronic kidney disease with stage 1 through stage 4 chronic kidney disease, or unspecified chronic kidney disease; E78.5 Hyperlipidemia, unspecified; E11.22 Type 2 diabetes mellitus with diabetic chronic kidney disease; D69.6 Thrombocytopenia, unspecified; D72.819 Decreased white blood cell count, unspecified; R91.8 Other nonspecific abnormal finding of lung field; R00.1 Bradycardia, unspecified; E87.1 Hypo-osmolality and hyponatremia; N18.30 Chronic kidney disease, stage 3 unspecified; G56.01 Carpal tunnel syndrome, right upper limb; K76.0 Fatty (change of) liver, not elsewhere classified; R79.89 Other specified abnormal findings of blood chemistry; I08.3 Combined rheumatic disorders of mitral, aortic and tricuspid valves; I69.351 Hemiplegia and hemiparesis following cerebral infarction affecting right dominant side; Z79.899 Other long term (current) drug therapy; Z79.84 Long term (current) use of oral hypoglycemic drugs; Z88.6 Allergy status to analgesic agent; Z90.49 Acquired absence of other specified parts of digestive tract; Z80.9 Family history of malignant neoplasm, unspecified; Z82.49 Family history of ischemic heart disease and other diseases of the circulatory system
CPT/HCPCS: 96372; 96360; 96361; 99285; 36415; 93005; 93306; 85379; 80061; 80053; 83605; 83615; 83735; 84484; 85025; 85610; 85730; 71045; 93880; 70450; 71275; G0378 ×2; Q9967; J1644

== ENCOUNTER → 2021-12-26 | Outpatient (CLI) | payer MEDICARE, OTHER ==
[2021-12-26 17:54] LABS: ALT 22 U/L (8-44); AST 20 U/L (13-35); African American GFR (CKD) 57.7 (60.0-200.0); Albumin 5.1 g/dL (3.8-4.9); Alkaline Phosphatase 77 U/L (41-126); Blood Urea Nitrogen 27.5 mg/dL (9.0-27.0); Calcium 9.7 mg/dL (8.7-10.3); Carbon Dioxide 23.1 mmol/L (20.0-27.5); Chloride 101 mmol/L (96-109); Chol/HDL Ratio 2.37 Ratio; Glucose 116 mg/dL (70-110); LDL Cholesterol,Calculated 78.5 mg/dL (0.0-131.0); Non-African American GFR(CKD) 49.8 (60.0-200.0); Potassium 4.7 mmol/L (3.5-5.5); Sodium 137 mmol/L (135-145); Total Protein 8.1 g/dL (6.2-8.2); VLDL Calculation 19.82 mg/dL (5.00-40.00)
== END | disposition home or self-care (01) ==
LOC: LABWHC1 13:23
PROVIDERS: ATTEND Internal Medicine Interventional Cardiology
DX: E78.2 Mixed hyperlipidemia (principal)
CPT/HCPCS: 36415; 80053; 80061

== ENCOUNTER 2021-12-31 05:34 | Day surgery (SDC) | payer MEDICARE, OTHER ==
[2021-12-26 09:19] VITALS: BMI 30.2
[2021-12-31] MEDS ORDERED: NITROGLYCERIN SL TABS 0.4 MG TAB SUBLINGUAL PRN (05:49)
[2021-12-31] MEDS ORDERED: ALPRAZolam 0.25 MG TAB PO PRN (05:49)
[2021-12-31] MEDS ORDERED: SODIUM CHLORIDE 0.9% 1,000 ML in EMPTY BAG 1 BAG IV SCH (05:49)
[2021-12-31] MEDS ORDERED: ALPRAZolam 0.5 MG TAB PO PRN (05:49)
[2021-12-31 06:28] LABS: Glucose,Whole Blood 141 mg/dL (70-110)
[2021-12-31 06:36] VITALS: TEMP 98.3
[2021-12-31 06:36] LABS: Basophils % (A) 1 %; Eosinophils # (A) 0.1 k/uL (0-0.7); Eosinophils % (A) 2 %; HGB 15.1 gm/dL (11.4-16.0); Lymphocytes # (A) 1.8 k/uL (1.0-4.8); Lymphocytes % (A) 34 %; MCV 91.4 fL (80.0-100.0); Mean Platelet Volume 8.1; Monocytes # (A) 0.3 k/uL (0-1.0); Monocytes % (A) 6 %; Neutrophils # (A) 2.9 k/uL (1.3-7.7); Neutrophils % (A) 56 %; Platelet Count 232 k/uL (150-450); RBC 4.71 m/uL (3.80-5.40); RDW 12.3 % (11.5-15.5); WBC 5.2 k/uL (3.8-10.6)
[2021-12-31] MEDS ORDERED: ASPIRIN 325 MG TAB PO ONE (07:00)
[2021-12-31] MEDS ORDERED: VERAPAMIL 2.5 MG/ML 2 ML AMP ONE (07:26)
[2021-12-31] MEDS ORDERED: fentaNYL (PF) 50 MCG/ML 2 ML AMP ONE (07:26)
[2021-12-31] MEDS ORDERED: HEPARIN SODIUM 1,000 UN/ML (10ML VL) ONE (07:26)
[2021-12-31] MEDS ORDERED: fentaNYL (PF) 50 MCG/ML 2 ML AMP IVP ONE (07:38)
[2021-12-31] MEDS ORDERED: LIDOCAINE 1% INJ 10MG/ML (30 ML VIAL-PF) SQ ONE (07:41)
[2021-12-31] MEDS ORDERED: VERAPAMIL SYRINGE (5 MG/10 ML) INTRAARTER ONE (07:44)
[2021-12-31] MEDS ORDERED: HEPARIN SODIUM 1,000 UN/ML (10ML VL) IVP ONE (07:47)
[2021-12-31] MEDS ORDERED: IOPAMIDOL-370 125ML BTL INJ ONE ×2 (07:50)
[2021-12-31] MEDS ORDERED: RX INFO: IV CONTRAST WAS GIVEN 1 EACH MISC MISCELLANE PRN (08:00)
[2021-12-31] MEDS ORDERED: SODIUM CHLORIDE 0.9% 1,000 ML IV SCH (08:00)
--- NOTE | 2021-12-31 08:04 | P.CARDCATH ---
Date of Procedure: 12/31/21 Description of Procedure: Cardiac Catheterization: The patient is a 71-year-old female with history of arrhythmia, hypertension, hyperlipidemia and diabetes mellitus who recently had an abnormal MPI. Recommendations were made regarding cardiac catheterization, the risks and the complications were discussed with the patient who is in full understanding and agreement. Procedure Description: Patient was brought to engineering lab technician in fasting semi-sedated state after receiving Fentanyl and Benadryl achieiving moderate conscious sedated state. Using Xylocaine Anesthesia and Seldinger technique, a 6-[place] Islander sheath was introduced in the right radial artery . Subsequently, selective coronary angiography was performed using a 3.5-[place]er 5 bend Kevin catheter. Multiple views of the coronary artery including hemiaxial views were obtained. The left Kevin catheter was used to cross the aortic valve and LVEDP was calculated. Following that, catheter and sheath were removed. Hemostasis was obtained with deployment of TR band . There was no immediate complication. Patient was returned to room in stable condition. Of note, the patient received a total of 4000 units of intravenous heparin as well as intra-arterial verapamil. Findings: Left main: This is a short sized vessel, bifurcating into LAD and left circumflex, left main has no high-grade stenosis LAD: This is a large size vessel, reaching to the apex, giving rise to a large diagonal branch in the proximal segment, the LAD and its branches have no evidence of high-grade stenosis. Left circumflex: This is a large dominant vessel giving rise to a large obtuse marginal branch in the mid segment distally bifurcating into PDA and PLV, the left circumflex and its branches have no evidence of high-grade stenosis RCA: This is a small nondominant vessel that has no evidence of high-grade stenosis Left Ventriculogram: Not performed Hemodynamics: There was no gradient across the aortic valve , LVEDP was 12-15 mmHg Conclusion: 1. Normal coronary arteries 2. Left dominance 3. Normal LVEDP Recommendations: I have recommended to continue medical therapy with the aggressive coronary risks modification but has been initiated. The findings and the recommendations were discussed with the patient and the family and they were in full unders tanding and agreement. Duration of sedation is 12 minutes.
[2021-12-31] MEDS ORDERED: NON FORMULARY DRUG (Aspirin Ec 81 MG Tablet) PO SCH (09:00)
[2021-12-31] MEDS ORDERED: ATORVASTATIN 10 MG TAB PO SCH (09:00)
[2021-12-31] MEDS ORDERED: amLODIPine 10 MG TAB PO SCH (09:00)
[2021-12-31] MEDS ORDERED: LISINOPRIL 30 MG PO SCH (09:00)
[2021-12-31 09:22] VITALS: RESP 16
[2021-12-31 13:22] VITALS: BP 140/67; PULSE 68
== END 2021-12-31 11:20 | disposition home or self-care (01) ==
LOC: CATHCVL 05:34
PROVIDERS: ATTEND Internal Medicine Interventional Cardiology
DX: I25.10 Atherosclerotic heart disease of native coronary artery without angina pectoris (principal); R94.39 Abnormal result of other cardiovascular function study; E78.5 Hyperlipidemia, unspecified; E78.2 Mixed hyperlipidemia; I12.9 Hypertensive chronic kidney disease with stage 1 through stage 4 chronic kidney disease, or unspecified chronic kidney disease; N18.9 Chronic kidney disease, unspecified; E11.22 Type 2 diabetes mellitus with diabetic chronic kidney disease
CPT/HCPCS: 93458; 85025; C1769; C1894; J2001; J3010; J1644; Q9967

== ENCOUNTER 2022-06-27 12:45 | Emergency (ER) | payer MEDICARE, OTHER ==
[2022-06-27] MEDS ORDERED: LORazepam 2 MG/ML INJ IV STA ×2 (12:49→14:03)
[2022-06-27 12:56] LABS: Glucose,Whole Blood 128 mg/dL (70-110)
[2022-06-27] MEDS ORDERED: SODIUM CHLORIDE 0.9% 1,000 ML IV ONE (12:59)
[2022-06-27] MEDS ORDERED: levETIRAcetam IV 1,500 MG in SODIUM CHLORIDE 0.9% 250 ML IVPB ONE (12:59)
--- NOTE | 2022-06-27 13:02 | ED ---
General Adult HPI - General Stated complaint: Stroke Time Seen by Provider: 06/27/22 12:47 Source: patient, EMS, RN notes reviewed, old records reviewed Limitations: language barrier, physical limitation - History of Present Illness Initial comments: 72-year-old female history of previous intracranial hemorrhage presents for evaluation of right-sided facial droop and expressive aphasia. EMS report at 1223 the patient had gone from her normal state of health to complete expressive aphasia with facial spastic movements. Patient was able to answer yes and no questions through nodding. She is unable to speak at all. EMS had recorded the twitching of the face which doesn't appear to be focal seizure. She had a history of intracranial hemorrhage in 2016. Uncertain if this patient is on any anticoagulation at this time. - Related Data Home Medications Medication Instructions Recorded Confirmed amLODIPine [Norvasc] 10 mg PO DAILY 12/15/16 12/31/21 Atorvastatin [Lipitor] 10 mg PO DAILY 05/03/20 12/31/21 lisinopriL 30 mg PO DAILY 05/03/20 12/31/21 Acetaminophen [Tylenol] 1,000 mg PO HS 07/30/21 12/31/21 metFORMIN HCL [Glucophage] 500 mg PO BID 07/30/21 12/31/21 Aspirin EC [Ecotrin Low Dose] 81 mg PO DAILY 12/26/21 12/31/21 Allergies Allergy/AdvReac Type Severity Reaction Status Date / Time No Known Allergies Allergy Verified 12/26/21 08:50 Review of Systems ROS Statement: Those systems with pertinent positive or pertinent negative responses have been documented in the HPI. ROS Other: All systems not noted in ROS Statement are negative. 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, sciatica pain, Stage 3 CKD, History of Any Multi-Drug Resistant Organisms: None Reported Past Surgical History: Adenoidectomy, Cholecystectomy, Tonsillectomy Additional Past Surgical History / Comment(s): carpal tunnel right wrist Past Anesthesia/Blood Transfusion Reactions: No Reported Reaction, Family History of Problems w/ Anesthesia Additional Past Anesthesia/Blood Transfusion Reaction / Comment(s): sister had post op nausea and vomiting Smoking Status: Never smoker - Past Family History Sister(s) Family Medical History: Cancer, Coronary Artery Disease (CAD) General Exam General appearance: alert, in no apparent distress Head exam: Present: atraumatic, normocephalic Eye exam: Present: PERRL, EOMI ENT exam: Present: normal exam Respiratory exam: Present: normal lung sounds bilaterally. Absent: respiratory distress, wheezes Cardiovascular Exam: Present: regular rate, normal rhythm GI/Abdominal exam: Present: soft. Absent: distended, tenderness, guarding Extremities exam: Present: normal inspection, normal capillary refill. Absent: pedal edema Neurological exam: Present: alert, motor sensory deficit (Expressive aphasia, right-sided facial droop), other (Drift in the right upper extremity. 5 out of 5 strength in both lower extremities in the left upper extremity) Skin exam: Present: warm, dry, intact. Absent: cyanosis, diaphoretic Course Vital Signs 06/27/22 13:06 Temperature 98.1 F Pulse Rate 98 Respiratory 18 Rate Blood Pressure 186/77 O2 Sat by Pulse 90 L Oximetry - Reevaluation(s) Reevaluation #1: 06/27/22 13:21 Patient able to speak to her son is at bedside. EKG Findings - EKG Comments: EKG Findings:: Sinus tachycardia, low voltage rate of 108, ND interval 160, QRS duration 82, QTC [address] segment elevation. - EKG Results: EKG: interpreted by [facility] Medical Decision Making - Medical Decision Making Was pt. sent in by a medical professional or institution (, PA, DATA ASSISTANT, urgent care, hospital, or jail...) When possible be specific @ -No Did you speak to anyone other than the patient for history (EMS, parent, family, police, friend...)? What history was obtained from this source @ Per medics, and patient's brother and son Did you review nursing and triage notes (agree or disagree)? Why? @ -I reviewed and agree with nursing and triage notes Were old charts reviewed (outside hosp., previous admission, EMS record, old EKG, old radiological studies, urgent care reports/EKG's, jail records)? Report findings @ -Reviewed previous imaging including computed tomography scan from 2016 with intracranial hemorrhage Differential Diagnosis (chest pain, altered mental status, abdominal pain women, abdominal pain men, vaginal bleeding, weakness, fever, dyspnea, syncope, headache, dizziness, GI bleed, back pain, seizure, CVA, palpatations, mental health, musculoskeletal)? @ -not applicable EKG interpreted by me (3pts min.). @ -As above X-rays interpreted by me (1pt min.). @ -None done CT interpreted by me (1pt min.). @CT performed today was negative for intracranial hemorrhage, CT angiography negative for occlusion or dissection U/S interpreted by me (1pt. min.). @ -None done What testing was considered but not performed or refused? (CT, X-rays, U/S, labs)? Why? @ -None What meds were considered but not given or refused? Why? @ Considered TPA however patient not a candidate secondary to previous intracranial hemorrhage Did you discuss the management of the patient with other professionals (professionals i.e. , PA, DATA ASSISTANT, lab, RT, psych nurse, social media marketer, translator interpreter, teacher, corrections officer, nurse case management)? Give summary @ Dr. Wong and Dr. Ratliff Was smoking cessation discussed for >3mins.? @ -No Was critical care preformed (if so, how long)? @ yes Were there social determinants of health that impacted care today? How? (Homelessness, low income, unemployed, alcoholism, drug addiction, transportation, low edu. Level, literacy, decrease access to med. care, fci, rehab)? @ -No Was there de-escalation of care discussed even if they declined (Discuss DNR or withdrawal of care, Hospice)? DNR status @ -No What co-morbidities impacted this encounter? (DM, HTN, Smoking, COPD, CAD, Cancer, CVA, ARF, Chemo, Hep., AIDS, mental health diagnosis, sleep apnea, morbid obesity)? @ -HTN, hx of CVA Was patient admitted / discharged? Hospital course, mention meds given and route, prescriptions, significant lab abnormalities, going to OR and other pertinent info. @ -72-year-old female who presented for evaluation of suspected stroke and concern fo focal seizure. Patient had previous history of intracranial hemorr carlin. She had residual right hand and arm weakness. No baseline facial droop or speech abnormality. Patient was completely aphasic upon arrival with right- sided facial droop. She also had a twitching of the face suggestive of focal seizure. Initial NIH of 14. She was taken immediately to CT and receive CT CT angiography. CT without contrast was negative for intracranial hemorrhage or mass effect. Patient not a TPA candidate secondary to previous intracranial hemorrhage. Dr. Cali was able to evaluate the imaging and did not see any occlusion to require intervention. He did recommend transfer to [facility] for EEG and further evaluation. I discussed case with Dr. Ratliff who will accept the transfer. Patient given IV fluids, aspirin, and Keppra. Undiagnosed new problem with uncertain prognosis? @ -No Drug Therapy requiring intensive monitoring for toxicity (Heparin, Nitro, Insulin, Cardizem)? @ -No Were any procedures done? @ -No Diagnosis/symptom? @ CVA, seizure Acute, or Chronic, or Acute on Chronic? @ Acute Uncomplicated (without systemic symptoms) or Complicated (systemic symptoms)? @ Complicated Side effects of treatment? @ -No Exacerbation, Progression, or Severe Exacerbation? @ -No Poses a threat to life or bodily function? How? (Chest pain, [place], [place], pneumonia, PE, COPD, DKA, ARF, appy, cholecystitis, CVA, Diverticulitis, Homicidal, Harris icidal, threat to staff... and all critical care pts) @ -[Yes, CVA, seizure, status epilepticus - Lab Data Result diagrams: 06/27/22 13:01 06/27/22 13:01 Lab Results 06/27/22 06/27/22 06/27/22 Range/Units 12:55 13:01 13:01 WBC 7.0 (3.8-10.6) k/uL RBC 4.53 (3.80-5.40) m/uL Hgb 13.7 (11.4-16.0) gm/dL Hct 41.7 (34.0-46.0) % MCV 91.9 (80.0-100.0) fL MCH 30.3 (25.0-35.0) pg MCHC 33.0 (31.0-37.0) g/dL RDW 12.4 (11.5-15.5) % Plt Count 236 (150-450) k/uL MPV 7.8 Neutrophils % 55 % Lymphocytes % 33 % Monocytes % 6 % Eosinophils % 3 % Basophils % 1 % Neutrophils # 3.8 (1.3-7.7) k/uL Lymphocytes # 2.3 (1.0-4.8) k/uL Monocytes # 0.4 (0-1.0) k/uL Eosinophils # 0.2 (0-0.7) k/uL Basophils # 0.0 (0-0.2) k/uL PT 10.4 (9.0-12.0) sec INR 1.0 (<1.2) APTT 24.5 (22.0-30.0) sec Sodium (137-145) mmol/L Potassium (3.5-5.1) mmol/L Chloride (98-107) mmol/L Carbon Dioxide (22-30) mmol/L Anion Gap mmol/L BUN (7-17) mg/dL Creatinine (0.52-1.04) mg/dL Est GFR (CKD-EPI)AfAm (>60 ml/min/1.73 sqM) Est GFR (CKD-EPI)NonAf (>60 ml/min/1.73 sqM) Glucose (74-99) mg/dL POC Glucose (mg/dL) 128 H (70-110) mg/dL POC Glu Instrument Person JANE Emeli Coleman Calcium (8.4-10.2) mg/dL Total Bilirubin (0.2-1.3) mg/dL AST (14-36) U/L ALT (4-34) U/L Alkaline Phosphatase (38-126) U/L Creatine Kinase (30-135) U/L Total Protein (6.3-8.2) g/dL Albumin (3.5-5.0) g/dL 06/27/22 Range/Units 13:01 WBC (3.8-10.6) k/uL RBC (3.80-5.40) m/uL Hgb (11.4-16.0) gm/dL Hct (34.0-46.0) % MCV (80.0-100.0) fL MCH (25.0-35.0) pg MCHC (31.0-37.0) g/dL RDW (11.5-15.5) % Plt Count (150-450) k/uL MPV Neutrophils % % Lymphocytes % % Monocytes % % Eosinophils % % Basophils % % Neutrophils # (1.3-7.7) k/uL Lymphocytes # (1.0-4.8) k/uL Monocytes # (0-1.0) k/uL Eosinophils # (0-0.7) k/uL Basophils # (0-0.2) k/uL PT (9.0-12.0) sec INR (<1.2) APTT (22.0-30.0) sec Sodium 138 (137-145) mmol/L Potassium 4.2 (3.5-5.1) mmol/L Chloride 101 (98-107) mmol/L Carbon Dioxide 25 (22-30) mmol/L Anion Gap 12 mmol/L BUN 25 H (7-17) mg/dL Creatinine 1.16 H (0.52-1.04) mg/dL Est GFR (CKD-EPI)AfAm 54 (>60 ml/min/1.73 sqM) Est GFR (CKD-EPI)NonAf 47 (>60 ml/min/1.73 sqM) Glucose 132 H (74-99) mg/dL POC Glucose (mg/dL) (70-110) mg/dL POC Glu Instrument Person ID Calcium 9.8 (8.4-10.2) mg/dL Total Bilirubin 0.7 (0.2-1.3) mg/dL AST 27 (14-36) U/L ALT 24 (4-34) U/L Alkaline Phosphatase 84 (38-126) U/L Creatine Kinase 128 (30-135) U/L Total Protein 8.5 H (6.3-8.2) g/dL Albumin 4.6 (3.5-5.0) g/dL Critical Care Time Critical Care Time: Yes Total Critical Care Time: 35 Disposition Clinical Impression: Cerebrovascular accident (CVA), Seizure Disposition: OTHER INSTITUTION NOT DEFINED Condition: Serious Is patient prescribed a controlled substance at d/c from ED?: No Referrals: Efrain Chicas MD [Primary Care Provider] - 1-2 days Time of Disposition: 13:44 - Out of Hospital Transfer - Req. Specs Out of Hospital Transfer - Requested Specifics: Other Emergency Center ([facility]
[2022-06-27 13:14] LABS: Basophils % (A) 1 %; Eosinophils # (A) 0.2 k/uL (0-0.7); Eosinophils % (A) 3 %; HCT 41.7 % (34.0-46.0); HGB 13.7 gm/dL (11.4-16.0); Lymphocytes # (A) 2.3 k/uL (1.0-4.8); Lymphocytes % (A) 33 %; MCH 30.3 pg (25.0-35.0); MCV 91.9 fL (80.0-100.0); Mean Platelet Volume 7.8; Monocytes # (A) 0.4 k/uL (0-1.0); Monocytes % (A) 6 %; Neutrophils # (A) 3.8 k/uL (1.3-7.7); Neutrophils % (A) 55 %; Platelet Count 236 k/uL (150-450); RBC 4.53 m/uL (3.80-5.40); RDW 12.4 % (11.5-15.5)
[2022-06-27 13:15] VITALS: RESP 18; TEMP 98.1
--- NOTE | 2022-06-27 13:29 | CT ---
EXAMINATION TYPE: CT brain wo con for TPA CT DLP: 1102.3 mGycm, Automated exposure control for dose reduction was used. DATE OF EXAM: 06/27/2022 1:06 PM COMPARISON: CLINICAL INDICATION:Female, 72 years old with history of Neuro deficit, acute, stroke suspected, Neur o deficits TECHNIQUE: Brain: Axial CT images of the brain were obtained with coronal and sagittal reformats created and rev iewed. Contrast used: None. Oral contrast used: None. FINDINGS: Brain: Extra-axial spaces: No abnormal extra-axial fluid collections. Ventricular system: Within normal limits Cerebral parenchyma: No acute intraparenchymal hemorrhage or mass effect. The sanchez-white junction is well differentiated. Cerebellum: Unremarkable. Mass effect: No evidence of midline shift. Intracranial vasculature: Atherosclerotic calcifications of the intracranial vessels. Soft tissues: Normal. Calvarium/osseous structures: No depressed skull fracture. Paranasal sinuses and mastoid air cells: Mild scattered paranasal sinus disease. Visualized orbits: Orbital contents are intact. IMPRESSION: No acute intracranial process.
[2022-06-27 13:37] LABS: Albumin 4.6 g/dL (3.5-5.0); Calcium 9.8 mg/dL (8.4-10.2); Potassium 4.2 mmol/L (3.5-5.1); Total Bilirubin 0.7 mg/dL (0.2-1.3); Total Protein 8.5 g/dL (6.3-8.2)
[2022-06-27 13:39] LABS: Partial Thromboplastin Time 24.5 sec (22.0-30.0); Prothrombin Time 10.4 sec (9.0-12.0)
[2022-06-27] MEDS ORDERED: ASPIRIN 325 MG TAB PO STA (13:44)
--- NOTE | 2022-06-27 13:49 | CT ---
EXAMINATION TYPE: CT angio head neck CT DLP: 416.5 mGycm, Automated exposure control for dose reduction was used. DATE OF EXAM: 06/27/2022 1:22 PM COMPARISON: 06/27/2022. CLINICAL INDICATION:Female, 72 years old with history of Neuro deficit, acute, stroke suspected; PHH, Neuro deficits TECHNIQUE: Axially acquired helical CT angiogram of the head and neck was obtained with contrast. Axi al images are supplemented with 3D reconstructions which [facility] NASCET criteria used. Contrast used:65 mL of Isovue 300 with IV Contrast, Oral contrast used: None. FINDINGS: CTA HEAD: No evidence of acute intracranial hemorrhage, mass effect, or midline shift. The ventricles, sulci, a nd cisterns are unremarkable. The visualized portions of the internal carotid arteries, middle cerebral arteries, anterior cerebral arteries, and posterior cerebral arteries are patent. The basilar and vertebral arteries are patent. CTA NECK: Right Carotid System: The common carotid artery and external carotid artery are patent. The carotid bifurcation demonstrate s no evidence of hemodynamically significant stenosis. The remaining portions of the internal carotid artery demonstrate normal size without significant narrowing. Left Carotid System: The common carotid artery and external carotid artery are patent. The carotid bifurcation demonstrate s no evidence of hemodynamically significant stenosis. The remaining portions of the internal carotid artery demonstrate normal size without significant narrowing. Vertebral arteries are patent without evidence hemodynamically significant stenosis. There is a 4-vessel aortic arch. The origins of the great vessels are patent. No evidence of hemodyna mically significant stenosis. Upper thorax: IMPRESSION: 1. No evidence of dissection of the cervical internal carotid arteries or vertebral arteries or any e vidence of significant stenosis at the carotid bifurcations. 2. No evidence of intracranial high-grade stenosis or intracranial aneurysm.
[2022-06-27 14:26] VITALS: BP 161/78; PULSE 91
== END 2022-06-27 14:10 | disposition other institution (70) ==
LOC: EC 12:45
DX: I63.9 Cerebral infarction, unspecified (principal); R56.9 Unspecified convulsions; E11.22 Type 2 diabetes mellitus with diabetic chronic kidney disease; I12.9 Hypertensive chronic kidney disease with stage 1 through stage 4 chronic kidney disease, or unspecified chronic kidney disease; N18.30 Chronic kidney disease, stage 3 unspecified; R29.714 NIHSS score 14; Z79.84 Long term (current) use of oral hypoglycemic drugs; Z79.82 Long term (current) use of aspirin; Z79.899 Other long term (current) drug therapy; Z86.73 Personal history of transient ischemic attack (TIA), and cerebral infarction without residual deficits
CPT/HCPCS: 99291 ×2; 96374 ×2; 96375 ×2; 96376 ×2; 96361 ×2; 36415; 93005; 80053; 82550; 84484; 85025; 85610; 85730; 70496; 70450; 70498; J2060; J1953; Q9967

== ENCOUNTER → 2022-10-05 | Outpatient (CLI) | payer MEDICARE, OTHER ==
--- NOTE | 2022-10-05 13:14 | XR ---
3 views right foot. DATE: 10/05/2022. COMPARISON: None available. CLINICAL HISTORY: Pain and swelling after trauma. IMPRESSION: There are no acute osseous abnormalities. No significant soft tissue swelling is seen. The joint spaces are preserved.
== END | disposition home or self-care (01) ==
LOC: RADXRMAIN 12:45
PROVIDERS: ATTEND Family Medicine
DX: M79.671 Pain in right foot (principal)

== ENCOUNTER → 2022-10-27 | Outpatient (CLI) | payer MEDICARE, OTHER ==
--- NOTE | 2022-10-28 12:25 | MM ---
Reason for Exam: Screening (asymptomatic). Last mammogram was performed 1 year(s) and 3 month(s) ago. Patient History: Menarche at age 11. First Full-Term at age 21. Postmenopausal. Risk Values: Brandy 5 year model risk: 1.6%. NCI Lifetime model risk: 3.7%. Prior Study Comparison: 11/26/2017 Left Diagnostic Mammogram, [facility]. 09/13/2019 Bilateral Screening Mammogram, [facility]. 07/25/2021 Bilateral MG 3D screening mammo w/cad, [facility]. Tissue Density: The breast tissue is heterogeneously dense. This may lower the sensitivity of mammography. Findings: Analyzed By CAD. Comparison appears symmetrical and stable. Scattered benign round calcifications are present bilaterally. No significant interval changes are evident. No suspicious groups of microcalcifications, spiculated or lobular masses, architectural distortion or other secondary signs of malignancy are mammographically apparent. Overall Assessment: Benign, BI-RAD 2 Management: Screening Mammogram of both breasts in 1 year. A negative mammogram report should not preclude additional follow up of suspicious palpable abnormalities. Patient should continue monthly self breast exam. A clinical breast exam by your physician is recommended on an annual basis and results should be correlated with mammographic findings. Electronically signed and approved by: Drake Brown D.O. Radiologis
== END | disposition home or self-care (01) ==
LOC: RADMAMWWP 10:14
PROVIDERS: ATTEND Family Medicine
DX: Z12.31 Encounter for screening mammogram for malignant neoplasm of breast (principal); Z78.0 Asymptomatic menopausal state
CPT/HCPCS: 77063; 77067

== ENCOUNTER → 2023-04-07 | Outpatient (CLI) | payer MEDICARE, OTHER ==
[2023-04-07 15:35] LABS: Platelet Count 191 X 10*3/uL (140-440)
[2023-04-07 15:43] LABS: ALT 55 U/L (8-44); AST 38 U/L (13-35); Albumin 4.4 g/dL (3.8-4.9); Albumin/Globulin Ratio 1.63 Ratio (1.60-3.17); Alkaline Phosphatase 51 U/L (41-126); BUN/Creat Ratio 29.92 Ratio (12.00-20.00); Blood Urea Nitrogen 35.9 mg/dL (9.0-27.0); Calcium 9.6 mg/dL (8.7-10.3); Carbon Dioxide 24.8 mmol/L (21.6-31.8); Chloride 102 mmol/L (96-109); Chol/HDL Ratio 2.31 Ratio; Globulin 2.7 g/dL (1.6-3.3); Glucose 98 mg/dL (70-110); LDL Cholesterol,Calculated 75.5 mg/dL (0.0-131.0); Potassium 5.3 mmol/L (3.5-5.5); Sodium 139 mmol/L (135-145); Total Bilirubin 0.3 mg/dL (0.3-1.2); Total Protein 7.1 g/dL (6.2-8.2); VLDL Calculation 14.72 mg/dL (5.00-40.00)
[2023-04-07 19:43] LABS: Valproic Acid (Depakene) 59.9 UG/ML (50.0-100.0)
== END | disposition home or self-care (01) ==
LOC: LABWHC1 09:26
PROVIDERS: ATTEND Internal Medicine Interventional Cardiology
DX: I10 Essential (primary) hypertension (principal); E78.2 Mixed hyperlipidemia; G40.109 Localization-related (focal) (partial) symptomatic epilepsy and epileptic syndromes with simple partial seizures, not intractable, without status epilepticus; Z79.899 Other long term (current) drug therapy; Z86.73 Personal history of transient ischemic attack (TIA), and cerebral infarction without residual deficits
CPT/HCPCS: 36415; 80053; 80061; 80164; 85049

== ENCOUNTER → 2023-05-04 | Outpatient (CLI) | payer MEDICARE, OTHER ==
[2023-05-04 16:55] LABS: Hepatitis A Antibody IgM Nonreactive; Hepatitis B Core IgM Nonreactive; Hepatitis B Surface Antigen Nonreactive; Hepatitis C IgG Antibody Nonreactive
== END | disposition home or self-care (01) ==
LOC: LABWHC1 10:13
PROVIDERS: ATTEND Family Medicine
DX: E11.9 Type 2 diabetes mellitus without complications (principal); R79.89 Other specified abnormal findings of blood chemistry
CPT/HCPCS: 36415; 80074; 82977; 83036

== ENCOUNTER → 2023-05-17 | Outpatient (CLI) | payer MEDICARE, OTHER ==
--- NOTE | 2023-05-17 16:12 | US ---
EXAMINATION TYPE: US liver DATE OF EXAM: 05/17/2023 COMPARISON: US CLINICAL INDICATION: Female, 73 years old with history of R79.89 elevated lfts; Elevated LFT's, GB mireles rgically absent TECHNIQUE: Multiple sonographic images of the right upper quadrant are obtained. FINDINGS: EXAM MEASUREMENTS: Liver Length: 14.3 cm CBD: 1.4 cm Right Kidney: 9.9 x 3.8 x 4.5 cm FURNITURE BUILDER NOTES: Pancreas: 3mm panc duct visualized at the head of the pancreas changes at the upper limits of normal , tail obscured by overlying bowel gas Liver: Heterogeneous Gallbladder: Surgically absent Evidence for sonographic Lerner's sign: No CBD: Dilated post cholecystectomy. Normal up to 1.0 cm in the postcholecystectomy patient. Right Kidney: No evidence of hydro IMPRESSION: 1. Dilated common bile duct 1.4 cm.
== END | disposition home or self-care (01) ==
LOC: RADUSWWP 10:24
PROVIDERS: ATTEND Family Medicine
DX: K83.8 Other specified diseases of biliary tract (principal); R79.89 Other specified abnormal findings of blood chemistry
CPT/HCPCS: 76705

== ENCOUNTER → 2023-06-29 | Outpatient (CLI) | payer MEDICARE, OTHER ==
[2023-06-29 15:07] LABS: ALT 24 U/L (8-44); AST 25 U/L (13-35); Albumin 4.6 g/dL (3.8-4.9); Albumin/Globulin Ratio 1.53 Ratio (1.60-3.17); Alkaline Phosphatase 55 U/L (41-126); BUN/Creat Ratio 26.09 Ratio (12.00-20.00); Blood Urea Nitrogen 28.7 mg/dL (9.0-27.0); Calcium 9.7 mg/dL (8.7-10.3); Carbon Dioxide 23.2 mmol/L (21.6-31.8); Chloride 103 mmol/L (96-109); Glucose 105 mg/dL (70-110); Potassium 4.8 mmol/L (3.5-5.5); Sodium 139 mmol/L (135-145); Total Bilirubin 0.4 mg/dL (0.3-1.2); Total Protein 7.6 g/dL (6.2-8.2)
[2023-06-29 15:56] LABS: Basophils # (A) 0.03 X 10*3/uL (0.00-0.10); Basophils % (A) 0.7 %; Eosinophils # (A) 0.12 X 10*3/uL (0.04-0.35); Eosinophils % (A) 2.9 %; HCT 44.6 % (37.2-46.3); HGB 14.5 g/dL (12.0-15.0); Lymphocytes # (A) 1.43 X 10*3/uL (0.90-5.00); Lymphocytes % (A) 34.9 %; MCH 31.1 pg (27.0-32.0); MCHC 32.5 g/dL (32.0-37.0); MCV 95.7 FL (80.0-97.0); Mean Platelet Volume 11.9 FL (9.5-12.2); Monocytes # (A) 0.41 X 10*3/uL (0.20-1.00); NRBC Per 100 WBC 0 X 10*3/uL (0.00-0.01); Neutrophils # (A) 2.09 X 10*3/uL (1.80-7.70); Platelet Count 148 X 10*3/uL (140-440); RBC 4.66 X 10*6/uL (4.10-5.20); RDW 12.2 % (11.5-14.5)
[2023-06-29 21:14] LABS: Valproic Acid (Depakene) 29.8 UG/ML (50.0-100.0)
== END | disposition home or self-care (01) ==
LOC: LABWHC1 11:12
PROVIDERS: ATTEND Internal Medicine Gastroenterology
DX: G40.109 Localization-related (focal) (partial) symptomatic epilepsy and epileptic syndromes with simple partial seizures, not intractable, without status epilepticus (principal); R74.8 Abnormal levels of other serum enzymes; Z86.73 Personal history of transient ischemic attack (TIA), and cerebral infarction without residual deficits
CPT/HCPCS: 36415; 80053; 80164; 85025

== ENCOUNTER → 2023-07-13 | Outpatient (CLI) | payer MEDICARE, OTHER ==
--- NOTE | 2023-07-13 22:05 | MR ---
EXAMINATION TYPE: MR MRCP DATE OF EXAM: 07/13/2023 11:28 AM CLINICAL INDICATION:Female, 73 years old with history of K83.8 OTHER SPECIFIED DISEASES OF BILIARY TR ACT; PHH, Acquired dilation of bile duct. COMPARISON: Ultrasound 05/17/2023 TECHNIQUE: Multi planar, T2-weighted imaging with and without fat saturation and chemical shift imag ing was performed of the abdomen. Then, heavily T2 weighted imaging (half-Fourier acquisition single- shot turbo spin-echo) was utilized in order to study the biliary system. Maximum intensity projectio n images were reconstructed from the original data of the biliary tree. 3D images were created on a [employer] work station. No Gadolinium given. FINDINGS: Lower Thorax: No evidence for acute process. MRCP: * The intrahepatic ducts have a normal appearance. * The common hepatic duct measures 15 mm in size. * The common bile duct at the level of the pancreatic head measures 15 mm in size. * The pancreatic duct is normal. * The gallbladder is surgically absent. Dilation of the central intrahepatic and extrahepatic basilar system, no stones identified. Abdomen: Liver: No evidence for hepatic steatosis or cirrhosis. Pancreas: No ductal dilation. No evidence for solid mass. Spleen: Normal for size. Adrenal glands: Unremarkable. Kidneys: No evidence for obstructive uropathy. No suspicious renal masses. Stomach and Bowel: No evidence for bowel wall thickening or evidence for obstruction. Retroperitoneum/Peritoneum: No evidence of pneumoperitoneum or free fluid. Vasculature: No aortic aneurysm. Musculoskeletal: The osseous structures appear intact. Lymph Nodes: No gross evidence for lymphadenopathy. Abdominal wall: Tiny fat-containing umbilical hernia. IMPRESSION: 1. Biliary ductal dilation likely secondary to post cholecystectomy physiology superimposing patient 's age. 2. No evidence to suggest ductal stricture or choledocholithiasis.
== END | disposition home or self-care (01) ==
LOC: RADMRIMAIN 10:20
PROVIDERS: ATTEND Internal Medicine Gastroenterology
DX: K83.8 Other specified diseases of biliary tract (principal)
CPT/HCPCS: 74181

== ENCOUNTER → 2023-09-14 | Outpatient (CLI) | payer MEDICARE, OTHER ==
--- NOTE | 2023-09-14 14:03 | XR ---
EXAMINATION TYPE: XR knee complete bilateral DATE OF EXAM: 09/14/2023 CLINICAL HISTORY: pain TECHNIQUE: Three views of the bilateral knees are obtained. COMPARISON: None. FINDINGS: There is no acute fracture/dislocation. The tri-compartment joint spaces appear mild dege nerative changes bilaterally. The overlying soft tissue appears unremarkable. IMPRESSION: There is no acute fracture or dislocation.ICD 10 NO FRACTURE, INITIAL EVALUATION
== END | disposition home or self-care (01) ==
LOC: RADXRMAIN 12:34
PROVIDERS: ATTEND Family Medicine
DX: M25.562 Pain in left knee (principal); M25.561 Pain in right knee; E88.89 Other specified metabolic disorders; W19.XXXA Unspecified fall, initial encounter

== ENCOUNTER → 2023-12-03 | Outpatient (CLI) | payer MEDICARE, OTHER ==
[2023-12-03 16:33] LABS: ALT 19 U/L (8-44); AST 23 U/L (13-35); Albumin 4.5 g/dL (3.8-4.9); Alkaline Phosphatase 57 U/L (41-126); BUN/Creat Ratio 29.45 Ratio (12.00-20.00); Blood Urea Nitrogen 32.4 mg/dL (9.0-27.0); Calcium 9.3 mg/dL (8.7-10.3); Carbon Dioxide 23.1 mmol/L (21.6-31.8); Chloride 107 mmol/L (96-109); Chol/HDL Ratio 2.25 Ratio; Glucose 105 mg/dL (70-110); LDL Cholesterol,Calculated 77.9 mg/dL (0.0-131.0); Potassium 4.9 mmol/L (3.5-5.5); Sodium 145 mmol/L (135-145); Total Bilirubin 0.4 mg/dL (0.3-1.2); Total Protein 7.5 g/dL (6.2-8.2); VLDL Calculation 18.34 mg/dL (5.00-40.00)
[2023-12-03 19:12] LABS: Valproic Acid (Depakene) 64.2 UG/ML (50.0-100.0)
== END | disposition home or self-care (01) ==
LOC: LABWHC1 10:27
PROVIDERS: ATTEND Internal Medicine Interventional Cardiology
CPT/HCPCS: 36415; 80053; 80061; 80164

== ENCOUNTER → 2024-03-08 | Outpatient (CLI) | payer MEDICARE, OTHER ==
[2024-03-08 20:00] LABS: ALT 29 U/L (8-44); AST 33 U/L (13-35); Albumin 4.4 g/dL (3.8-4.9); Albumin/Globulin Ratio 1.47 Ratio (1.60-3.17); Alkaline Phosphatase 55 U/L (41-126); BUN/Creat Ratio 28.82 Ratio (12.00-20.00); Blood Urea Nitrogen 31.7 mg/dL (9.0-27.0); Calcium 9.2 mg/dL (8.7-10.3); Carbon Dioxide 21.1 mmol/L (21.6-31.8); Chloride 99 mmol/L (96-109); Glucose 99 mg/dL (70-110); Potassium 5.1 mmol/L (3.5-5.5); Sodium 136 mmol/L (135-145); Total Bilirubin 0.3 mg/dL (0.3-1.2); Total Protein 7.4 g/dL (6.2-8.2); Valproic Acid (Depakene) 54.4 UG/ML (50.0-100.0)
== END | disposition home or self-care (01) ==
LOC: LABWHC1 12:11
PROVIDERS: ATTEND Psychiatry & Neurology Neurology
DX: G40.109 Localization-related (focal) (partial) symptomatic epilepsy and epileptic syndromes with simple partial seizures, not intractable, without status epilepticus (principal); K76.0 Fatty (change of) liver, not elsewhere classified; R74.8 Abnormal levels of other serum enzymes
CPT/HCPCS: 36415; 80053; 80164; 81596; 85025

== ENCOUNTER → 2024-03-11 | Outpatient (CLI) | payer MEDICARE, OTHER ==
[2024-03-11 23:22] LABS: Basophils # (A) 0.03 X 10*3/uL (0.00-0.10); Basophils % (A) 0.6 %; Eosinophils # (A) 0.27 X 10*3/uL (0.04-0.35); Eosinophils % (A) 5.7 %; HCT 42.3 % (37.2-46.3); HGB 13.6 g/dL (12.0-15.0); Lymphocytes # (A) 1.85 X 10*3/uL (0.90-5.00); MCH 30.5 pg (27.0-32.0); MCHC 32.2 g/dL (32.0-37.0); MCV 94.8 FL (80.0-97.0); Mean Platelet Volume 10.9 FL (9.5-12.2); Monocytes # (A) 0.45 X 10*3/uL (0.20-1.00); Monocytes % (A) 9.5 %; NRBC Per 100 WBC 0 X 10*3/uL (0.00-0.01); Neutrophils # (A) 2.11 X 10*3/uL (1.80-7.70); Neutrophils % (A) 44.6 %; Platelet Count 178 X 10*3/uL (140-440); RBC 4.46 X 10*6/uL (4.10-5.20); RDW 12.5 % (11.5-14.5); WBC 4.74 X 10*3/uL (4.50-10.00)
== END | disposition home or self-care (01) ==
LOC: LABWHC1 10:41
PROVIDERS: ATTEND Internal Medicine Gastroenterology
DX: K76.0 Fatty (change of) liver, not elsewhere classified (principal); G40.109 Localization-related (focal) (partial) symptomatic epilepsy and epileptic syndromes with simple partial seizures, not intractable, without status epilepticus; R74.8 Abnormal levels of other serum enzymes
CPT/HCPCS: 36415; 85025

== ENCOUNTER → 2024-06-05 | Outpatient (CLI) | payer MEDICARE, OTHER ==
--- NOTE | 2024-06-05 12:07 | MM ---
Reason for Exam: Screening (asymptomatic). Last mammogram was performed 1 year(s) and 7 month(s) ago. Patient History: Menarche at age 11. First Full-Term at age 21. Postmenopausal. Risk Values: Brandy 5 year model risk: 1.6%. NCI Lifetime model risk: 3.2%. Prior Study Comparison: 09/13/2019 Bilateral Screening Mammogram, [facility]. 07/25/2021 Bilateral MG 3D screening mammo w/cad, [facility]. 10/27/2022 Bilateral MG 3D screening mammo w/cad, [facility]. Tissue Density: There are scattered areas of fibroglandular density. Findings: Analyzed By CAD. There are few loosely grouped tiny benign-appearing round calcifications bilaterally redemonstrated. There is no suspicious group of microcalcifications or new suspicious mass in either breast. Overall Assessment: Benign, BI-RAD 2 Management: Screening Mammogram of both breasts in 1 year. . Patient should continue monthly self-breast exams. A clinical breast exam by your physician is recommended on an annual basis. This exam should not preclude additional follow-up of suspicious palpable abnormalities. Note on Brandy scores and lifetime risk: 1. A Brandy score greater than 3% is considered moderate risk. If this is the case, consider specialist referral to assess eligibility for a risk reducing agent. 2. If overall lifetime risk for the development of breast cancer is 20% or higher, the patient may qualify for future screening with alternating mammogram and breast MRI. [facility], , 06/05/2024 12:04 PM. Electronically signed and approved by: Dexter Ly M.D.
== END | disposition home or self-care (01) ==
LOC: RADMAMWWP 11:17
DX: Z12.31 Encounter for screening mammogram for malignant neoplasm of breast (principal); R92.323 Mammographic fibroglandular density, bilateral breasts; R92.1 Mammographic calcification found on diagnostic imaging of breast; Z78.0 Asymptomatic menopausal state
CPT/HCPCS: 77063; 77067

== ENCOUNTER → 2024-06-13 | Outpatient (CLI) | payer MEDICARE, OTHER ==
[2024-06-13 15:15] LABS: Chol/HDL Ratio 2.17 Ratio; LDL Cholesterol,Calculated 74.7 mg/dL (0.0-131.0); VLDL Calculation 14.06 mg/dL (5.00-40.00)
[2024-06-13 17:57] LABS: ALT 23 U/L (8-44); AST 39 U/L (13-35); Albumin 4.1 g/dL (3.8-4.9); Albumin/Globulin Ratio 1.46 Ratio (1.60-3.17); Alkaline Phosphatase 54 U/L (41-126); BUN/Creat Ratio 24.91 Ratio (12.00-20.00); Blood Urea Nitrogen 27.4 mg/dL (9.0-27.0); Calcium 9.2 mg/dL (8.7-10.3); Carbon Dioxide 18.9 mmol/L (21.6-31.8); Chloride 102 mmol/L (96-109); Globulin 2.8 g/dL (1.6-3.3); Glucose 119 mg/dL (70-110); Potassium 5.2 mmol/L (3.5-5.5); Sodium 136 mmol/L (135-145); Total Bilirubin 0.3 mg/dL (0.3-1.2); Total Protein 6.9 g/dL (6.2-8.2)
[2024-06-13 20:10] LABS: Valproic Acid (Depakene) 70.3 UG/ML (50.0-100.0)
== END | disposition home or self-care (01) ==
LOC: LABWHC1 10:01
PROVIDERS: ATTEND Psychiatry & Neurology Neurology
DX: G40.109 Localization-related (focal) (partial) symptomatic epilepsy and epileptic syndromes with simple partial seizures, not intractable, without status epilepticus (principal); E78.2 Mixed hyperlipidemia; Z86.73 Personal history of transient ischemic attack (TIA), and cerebral infarction without residual deficits
CPT/HCPCS: 36415; 80053; 80061; 80164; 85027

== ENCOUNTER → 2024-06-14 | Outpatient (CLI) | payer MEDICARE, OTHER ==
[2024-06-14 15:02] LABS: Platelet Count 187 X 10*3/uL (140-440)
== END | disposition home or self-care (01) ==
LOC: LABWHC1 11:43
PROVIDERS: ATTEND Psychiatry & Neurology Neurology
DX: G40.109 Localization-related (focal) (partial) symptomatic epilepsy and epileptic syndromes with simple partial seizures, not intractable, without status epilepticus (principal); Z86.73 Personal history of transient ischemic attack (TIA), and cerebral infarction without residual deficits
CPT/HCPCS: 36415; 85049

== ENCOUNTER 2024-08-17 12:27 | Day surgery (SDC) | payer MEDICARE, OTHER ==
[2024-08-16 12:35] VITALS: BMI 30.9
[~2024-08-17 12:27] MED LIST changes: -DEXAMETHASONE SOD PHOSPHATE 4 MG/ML 1 ML VIAL IV ONE; -HYDROmorphone 0.5 MG/0.5 ML SYRINGE IVP PRN; -LACTATED RINGERS 1,000 ML IV SCH; -MIDAZOLAM 2 MG/2 ML VIAL IV PRN; -ONDANSETRON 4 MG/2 ML VIAL IVP ONE
[2024-08-17] MEDS: IV FLUID CONTINUATION 1,000 ML IV ONE (12:54)
[2024-08-17 13:06] VITALS: TEMP 98
[2024-08-17 13:22] LABS: Glucose,Whole Blood 118 mg/dL (70-110)
[2024-08-17] MEDS: LACTATED RINGERS 1,000 ML IV SCH (13:24)
[2024-08-17] MEDS ORDERED: PROPOFOL 10 MG/ML 20 ML VIAL IV ONE (13:31)
[2024-08-17] MEDS ORDERED: LIDOCAINE 1% INJ 10MG/ML (20 ML MDV) ONE (13:31)
--- NOTE | 2024-08-17 13:33 | P.GSHP ---
History of Present Illness H&P Date: 08/17/24 Chief Complaint: Colon cancer screening 74 female here for colonoscopy. Last colonoscopy 4 years ago. Patient had 2 polyps seen at the time. No family history of colon cancer. No bowel complaints. 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, sciatica pain, Stage 3 CKD, LAST SEIZURE > 3 YEARS History of Any Multi-Drug Resistant Organisms: None Reported Past Surgical History: Adenoidectomy, Cholecystectomy, Orthopedic Surgery, Tonsillectomy Additional Past Surgical History / Comment(s): carpal tunnel right wrist , COLONOSCOPY Past Anesthesia/Blood Transfusion Reactions: No Reported Reaction, Family History of Problems w/ Anesthesia Additional Past Anesthesia/Blood Transfusion Reaction / Comment(s): sister had post op nausea and vomiting Smoking Status: Never smoker - Past Family History Sister(s) Family Medical History: Cancer, Coronary Artery Disease (CAD) Brother(s) Family Medical History: Cancer Medications and Allergies Home Medications Medication Instructions Recorded Confirmed Type amLODIPine [Norvasc] 10 mg PO DAILY 12/15/16 08/17/24 History Atorvastatin [Lipitor] 10 mg PO HS 05/03/20 08/17/24 History lisinopriL 30 mg PO DAILY 05/03/20 08/17/24 History metFORMIN HCL [Glucophage] 500 mg PO BID 07/30/21 08/17/24 History Aspirin EC [Ecotrin Low Dose] 81 mg PO DAILY 12/26/21 08/17/24 History Divalproex [Depakote] 250 mg PO QID 08/16/24 08/17/24 History Allergies Allergy/AdvReac Type Severity Reaction Status Date / Time No Known Allergies Allergy Verified 08/17/24 12:58 Surgical - Exam Vital Signs Temp Pulse Resp BP Pulse Ox 98.0 F 89 17 133/72 94 L 08/17/24 13:04 08/17/24 13:04 08/17/24 13:04 08/17/24 13:04 08/17/24 13:04 Physical exam: General: Well-developed, well-nourished HEENT: Normocephalic, sclerae nonicteric Abdomen: Nontender, nondistended Extremities: No edema Neuro: Alert and oriented Results - Labs Abnormal Lab Results - Last 24 Hours (Table) 08/17/24 Range/Units 13:14 POC Glucose (mg/dL) 118 H (70-110) mg/dL Assessment and Plan (1) Colon cancer screening Narrative/Plan: Will proceed with colonoscopy at this time. Current Visit: Yes Status: Acute Code(s): Z12.11 - ENCOUNTER FOR SCREENING FOR MALIGNANT NEOPLASM OF COLON SNOMED Code(s): 719838515
--- NOTE | 2024-08-17 13:47 | P.PCN ---
Date of Procedure: 08/17/24 Procedure(s) Performed: PREOPERATIVE DIAGNOSIS: Colon cancer screening with history of polyps POSTOPERATIVE DIAGNOSIS: Small transverse colon polyp, diverticulosis PROCEDURE: Colonoscopy with snare polypectomy ANESTHESIA: MAC SURGEON: Virgilio Brown M.D. SPECIMENS: None ENDOSCOPIC PROCEDURE: The patient was placed on the endoscopy table in the left decubitus position. The Olympus colonoscope was inserted into the anus and passed under direct visualization to the base of the cecum. The appendiceal or ifice was visualized. From that point the scope was slowly withdrawn inspecting all surfaces carefully. There were no neoplastic inflammatory or polypoid lesions throughout the cecum and ascending colon. In the transverse colon there was noted to be a small polyp that was removed using the snare with cautery technique. The tissue was fulgurated and no specimen was obtained. The remainder of the transverse descending sigmoid and rectum was normal. There was mild left-sided diverticulosis. Digital rectal examination was normal. The patient was taken to the recovery room in stable condition per anesthesia guidelines. RECOMMENDATIONS: Resume diet. Repeat colonoscopy 5 years.
[2024-08-17 14:05] VITALS: BP 117/73; PULSE 74; RESP 16
== END 2024-08-17 14:37 | disposition home or self-care (01) ==
LOC: ORWHC2ENDO 12:27
PROVIDERS: ATTEND Surgery
DX: Z12.11 Encounter for screening for malignant neoplasm of colon (principal); K57.30 Diverticulosis of large intestine without perforation or abscess without bleeding; E78.5 Hyperlipidemia, unspecified; G40.909 Epilepsy, unspecified, not intractable, without status epilepticus; I12.9 Hypertensive chronic kidney disease with stage 1 through stage 4 chronic kidney disease, or unspecified chronic kidney disease; E11.22 Type 2 diabetes mellitus with diabetic chronic kidney disease; N18.30 Chronic kidney disease, stage 3 unspecified; M19.90 Unspecified osteoarthritis, unspecified site; Z79.84 Long term (current) use of oral hypoglycemic drugs; Z86.73 Personal history of transient ischemic attack (TIA), and cerebral infarction without residual deficits; Z90.49 Acquired absence of other specified parts of digestive tract
CPT/HCPCS: 45385; J2003; J2704

== ENCOUNTER → 2024-09-08 | Outpatient (CLI) | payer MEDICARE, OTHER ==
[2024-09-08 11:14] LABS: Basophils # (A) 0.03 10*3/uL (0.00-0.10); Basophils % (A) 0.7 %; Eosinophils # (A) 0.24 10*3/uL (0.04-0.35); Eosinophils % (A) 5.2 %; HCT 38.6 % (37.2-46.3); HGB 13.3 g/dL (12.0-15.0); Lymphocytes # (A) 1.85 10*3/uL (0.90-5.00); Lymphocytes % (A) 40.3 %; MCH 31.6 pg (27.0-32.0); MCHC 34.5 g/dL (32.0-37.0); MCV 91.7 fL (80.0-97.0); Monocytes # (A) 0.57 10*3/uL (0.20-1.00); Monocytes % (A) 12.4 %; Neutrophils # (A) 1.86 10*3/uL (1.80-7.70); Neutrophils % (A) 40.5 %; Platelet Count 158 10*3/uL (140-440); RBC 4.21 10*6/uL (4.10-5.20); RDW 12.8 % (11.5-14.5); WBC 4.59 10*3/uL (4.50-10.00)
[2024-09-08 15:56] LABS: ALT 27 U/L (8-44); Albumin 4.2 g/dL (3.8-4.9); Albumin/Globulin Ratio 1.56 Ratio (1.60-3.17); Alkaline Phosphatase 54 U/L (41-126); Anion Gap 13.80 mmol/L (4.00-12.00); BUN/Creat Ratio 21.30 Ratio (12.00-20.00); Blood Urea Nitrogen 21.3 mg/dL (9.0-27.0); Calcium 9.2 mg/dL (8.7-10.3); Carbon Dioxide 19.2 mmol/L (21.6-31.8); Chloride 104 mmol/L (96-109); Globulin 2.7 g/dL (1.6-3.3); Glucose 132 mg/dL (70-110); Sodium 137 mmol/L (135-145); Total Protein 6.9 g/dL (6.2-8.2)
== END | disposition home or self-care (01) ==
LOC: LABWHC1 10:43
PROVIDERS: ATTEND Nurse Practitioner Family
DX: R74.8 Abnormal levels of other serum enzymes (principal)
CPT/HCPCS: 36415; 80053; 85025